=== PATIENT | female | born 1970 | race Caucasian/White ===

== ENCOUNTER 2019-05-30 06:16 | Emergency (ER) | payer OTHER ==
[2019-05-30 06:40] VITALS: RESP 18; TEMP 98
--- NOTE | 2019-05-30 06:52 | ED ---
Psych HPI - General Chief Complaint: Psychiatric Symptoms Stated Complaint: mental health Time Seen by Provider: 05/30/19 06:24 Source: patient, EMS, RN notes reviewed, old records reviewed Mode of arrival: EMS - History of Present Illness Initial Comments: Patient is a 49-year-old female who presents emergency department today with suicidal ideation, depression. Patient reports that she has had increased stressors in her life, with problems with her social relationships with friends and losing friends. She states that she is a daily drinker and drinks approximately a box of wine every other day. Patient reportedly is becoming increasing stress at home as her mother, who she lives was once moving to [place]. She also lives with HER-2 children and nephew. Patient reports that she does not have a car and does not have a job. She states that she is "done with everything". - Related Data Home Medications Medication Instructions Recorded Confirmed Aspirin EC [Ecotrin Low Dose] 81 mg PO DAILY 05/30/19 05/30/19 Biotin 5 mg PO DAILY 05/30/19 05/30/19 Cholecalciferol [Vitamin D3 (25 1,000 unit PO DAILY 05/30/19 05/30/19 Mcg = 1000 Iu)] DULoxetine HCL [Cymbalta] 60 mg PO BID 05/30/19 05/30/19 Lubiprostone [Amitiza] 8 mcg PO BID 05/30/19 05/30/19 Multivitamins, Thera [Multivitamin 1 tab PO DAILY 05/30/19 05/30/19 (formulary)] Omeprazole 40 mg PO DAILY 05/30/19 05/30/19 Ranitidine HCl [Zantac] 150 mg PO BID 05/30/19 05/30/19 Sominex 25mg 25 mg PO Q6H PRN 05/30/19 05/30/19 Allergies Allergy/AdvReac Type Severity Reaction Status Date / Time hydroxyzine HCl Allergy Intermediate Rash/Hives Verified 05/30/19 09:06 [From Vistaril] hydroxyzine pamoate Allergy Intermediate Rash/Hives Verified 05/30/19 09:06 [From Vistaril] metronidazole [From Flagyl] Allergy Unknown Verified 05/30/19 09:06 Penicillins Allergy Unknown Verified 05/30/19 09:06 Sulfa (Sulfonamide Allergy Unknown Verified 05/30/19 09:06 Antibiotics) trazodone Allergy Unknown Verified 05/30/19 09:06 Review of Systems ROS Statement: Those systems with pertinent positive or pertinent negative responses have been documented in the HPI. ROS Other: All systems not noted in ROS Statement are negative. Past Medical History Past Medical History: No Reported History Additional Past Medical History / Comment(s): Increased heart rate, hypotension, errythema on upper lip and around mouth. Patient was told its a skin reaction to stress. History of Any Multi-Drug Resistant Organisms: None Reported Past Surgical History: Cholecystectomy Additional Past Surgical History / Comment(s): Partial hysterectomy, bladder suspension, umbilical hernia repair, brast implants, herat catheterization, colonoscopy, endoscopy. Additional Past Anesthesia/Blood Transfusion Reaction / Comment(s): Patient reports having a surgery where she had nausea and vomiting from anesthesia. No previous blood transfusions. Past Psychological History: Anxiety, Depression, PTSD Additional Psychological History / Comment(s): Borderline personality disorder. History of 20 inpatient psychiatric admissions. Patient is transitioning from [facility] in in [facility] to [facility]. Smoking Status: Never smoker Past Alcohol Use History: None Reported Past Drug Use History: Cocaine, Prescription Drug Abuse Additional Drug Use History / Comment(s): Vicodin. 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 General Exam - General Exam Comments Initial Comments: Patient is a 49-year-old female, intoxicated. Limitations: no limitations General appearance: alert, appears intoxicated, anxious Head exam: Present: atraumatic, normocephalic, normal inspection Eye exam: Present: normal appearance, PERRL, EOMI. Absent: scleral icterus, conjunctival injection, periorbital swelling ENT exam: Present: normal exam, mucous membranes moist Neck exam: Present: normal inspection. Absent: tenderness, meningismus, lymphadenopathy Respiratory exam: Present: normal lung sounds bilaterally. Absent: respiratory distress, wheezes, rales, rhonchi, stridor Cardiovascular Exam: Present: regular rate, normal rhythm, normal heart sounds. Absent: systolic murmur, diastolic murmur, rubs, gallop, clicks GI/Abdominal exam: Present: soft, normal bowel sounds. Absent: distended, tenderness, guarding, rebound, rigid Extremities exam: Present: normal inspection, full ROM, normal capillary refill. Absent: tenderness, pedal edema, joint swelling, calf tenderness Back exam: Present: normal inspection Neurological exam: Present: alert, oriented X3, CN II-XII intact Psychiatric exam: Present: normal mood, agitated, anxious. Absent: normal affect Skin exam: Present: warm, dry, intact, normal color. Absent: rash Course Vital Signs 05/30/19 05/30/19 05/30/19 06:25 06:58 07:54 Temperature 98.0 F Pulse Rate 142 H 120 H 117 H Respiratory 18 18 Rate Blood Pressure 127/92 117/80 O2 Sat by Pulse 95 98 Oximetry 05/30/19 05/30/19 05/30/19 09:26 12:10 16:32 Temperature Pulse Rate 112 H 111 H 112 H Respiratory 18 18 18 Rate Blood Pressure 128/86 134/97 O2 Sat by Pulse 96 98 Oximetry Medical Decision Making - Medical Decision Making 49 year old female presents with ETOH intoxication and suicidal ideations. PAtient reportedly is under stress as mother wants to move, and she does not want to move. She drinks daily. Denies sucide plan. Patient was given fluids and labs obtained. Patient labs are unremarkable. PAtient sober and evaluated by EPS and [facility]U. PAtient agrees to safety plan and can be discharged home. DC with family. - Lab Data Result diagrams: 05/30/19 07:25 05/30/19 07:25 Lab Results 05/30/19 05/30/19 05/30/19 Range/Units 06:40 07:25 07:25 WBC (3.8-10.6) k/uL RBC (3.80-5.40) m/uL Hgb (11.4-16.0) gm/dL Hct (34.0-46.0) % MCV (80.0-100.0) fL MCH (25.0-35.0) pg MCHC (31.0-37.0) g/dL RDW (11.5-15.5) % Plt Count (150-450) k/uL Neutrophils % % Lymphocytes % % Monocytes % % Eosinophils % % Basophils % % Neutrophils # (1.3-7.7) k/uL Lymphocytes # (1.0-4.8) k/uL Monocytes # (0-1.0) k/uL Eosinophils # (0-0.7) k/uL Basophils # (0-0.2) k/uL Macrocytosis PT 9.9 (9.0-12.0) sec INR 0.9 (<1.2) Sodium 144 (137-145) mmol/L Potassium 4.2 (3.5-5.1) mmol/L Chloride 106 (98-107) mmol/L Carbon Dioxide 26 (22-30) mmol/L Anion Gap 12 mmol/L BUN 15 (7-17) mg/dL Creatinine 0.64 (0.52-1.04) mg/dL Est GFR (CKD-EPI)AfAm >90 (>60 ml/min/1.73 sqM) Est GFR (CKD-EPI)NonAf >90 (>60 ml/min/1.73 sqM) Glucose 93 (74-99) mg/dL Calcium 10.1 (8.4-10.2) mg/dL Magnesium 2.0 (1.6-2.3) mg/dL Total Bilirubin 0.3 (0.2-1.3) mg/dL AST 47 H (14-36) U/L ALT 34 (9-52) U/L Alkaline Phosphatase 149 H (38-126) U/L Total Protein 7.9 (6.3-8.2) g/dL Albumin 4.3 (3.5-5.0) g/dL Amylase 52 (30-110) U/L Lipase 290 (23-300) U/L Urine Opiates Screen Not Detected (NotDetected) Ur Oxycodone Screen Not Detected (NotDetected) Urine Methadone Screen Not Detected (NotDetected) Ur Propoxyphene Screen Not Detected (NotDetected) Ur Barbiturates Screen Not Detected (NotDetected) U Tricyclic Antidepress Not Detected (NotDetected) Ur Phencyclidine Scrn Not Detected (NotDetected) Ur Amphetamines Screen Not Detected (NotDetected) U Methamphetamines Scrn Not Detected (NotDetected) U Benzodiazepines Scrn Not Detected (NotDetected) Urine Cocaine Screen Not Detected (NotDetected) U Marijuana (THC) Screen Not Detected (NotDetected) Serum Alcohol 220 H* mg/dL 05/30/19 Range/Units 07:25 WBC 13.8 H (3.8-10.6) k/uL RBC 4.16 (3.80-5.40) m/uL Hgb 14.0 (11.4-16.0) gm/dL Hct 42.0 (34.0-46.0) % MCV 100.9 H (80.0-100.0) fL MCH 33.7 (25.0-35.0) pg MCHC 33.5 (31.0-37.0) g/dL RDW 15.2 (11.5-15.5) % Plt Count 358 (150-450) k/uL Neutrophils % 74 % Lymphocytes % 17 % Monocytes % 5 % Eosinophils % 2 % Basophils % 1 % Neutrophils # 10.1 H (1.3-7.7) k/uL Lymphocytes # 2.4 (1.0-4.8) k/uL Monocytes # 0.7 (0-1.0) k/uL Eosinophils # 0.2 (0-0.7) k/uL Basophils # 0.1 (0-0.2) k/uL Macrocytosis Slight PT (9.0-12.0) sec INR (<1.2) Sodium (137-145) mmol/L Potassium (3.5-5.1) mmol/L Chloride (98-107) mmol/L Carbon Dioxide (22-30) mmol/L Anion Gap mmol/L BUN (7-17) mg/dL Creatinine (0.52-1.04) mg/dL Est GFR (CKD-EPI)AfAm (>60 ml/min/1.73 sqM) Est GFR (CKD-EPI)NonAf (>60 ml/min/1.73 sqM) Glucose (74-99) mg/dL Calcium (8.4-10.2) mg/dL Magnesium (1.6-2.3) mg/dL Total Bilirubin (0.2-1.3) mg/dL AST (14-36) U/L ALT (9-52) U/L Alkaline Phosphatase (38-126) U/L Total Protein (6.3-8.2) g/dL Albumin (3.5-5.0) g/dL Amylase (30-110) U/L Lipase (23-300) U/L Urine Opiates Screen (NotDetected) Ur Oxycodone Screen (NotDetected) Urine Methadone Screen (NotDetected) Ur Propoxyphene Screen (NotDetected) Ur Barbiturates Screen (NotDetected) U Tricyclic Antidepress (NotDetected) Ur Phencyclidine Scrn (NotDetected) Ur Amphetamines Screen (NotDetected) U Methamphetamines Scrn (NotDetected) U Benzodiazepines Scrn (NotDetected) Urine Cocaine Screen (NotDetected) U Marijuana (THC) Screen (NotDetected) Serum Alcohol mg/dL Disposition Clinical Impression: Situational depression, ETOH abuse Disposition: HOME SELF-CARE Condition: Good Instructions (If sedation given, give patient instructions): Abuse of Alcohol (ED) Additional Instructions: Patient advised to stop drinking. Follow up with [facility]. Return to the emergency department if any alarming signs or symptoms occur. Is patient prescribed a controlled substance at d/c from ED?: No Referrals: Madina Nava MD [Primary Care Provider] - 1-2 days Time of Disposition: 16:25
[2019-05-30] MEDS ORDERED: SODIUM CHLORIDE 0.9% 1,000 ML IV STA (07:01)
[2019-05-30 07:03] LABS: Amphetamine Screen,Urine Not Detected (NotDetected); Barbiturate Screen,Urine Not Detected (NotDetected); Benzodiazepines Screen,Urine Not Detected (NotDetected); Cocaine Screen,Urine Not Detected (NotDetected); Methadone Screen, Urine Not Detected (NotDetected); Opiate Screen,Urine Not Detected (NotDetected); Oxycodone Screen, Urine Not Detected (NotDetected); Phencyclidine Screen,Urine Not Detected (NotDetected); Tricyclic Antidepressant,Urine Not Detected (NotDetected); Urn Cannabinoid Scrn Not Detected (NotDetected)
[2019-05-30] MEDS ORDERED: SODIUM CHLORIDE 0.9% 1,000 ML with POTASSIUM CHLORIDE 20 MEQ, MVI, ADULT NO.4 WITH VIT ... IV SCH ×5 (07:15)
[2019-05-30 07:49] LABS: INR 0.9 (<1.2); Prothrombin Time 9.9 sec (9.0-12.0)
[2019-05-30 08:01] LABS: ALT 34 U/L (9-52); AST 47 U/L (14-36); African American GFR (CKD) >90 (>60 ml/min/1.73 sqM); Albumin 4.3 g/dL (3.5-5.0); Alkaline Phosphatase 149 U/L (38-126); Amylase 52 U/L (30-110); Anion Gap 12 mmol/L; Blood Urea Nitrogen 15 mg/dL (7-17); Calcium 10.1 mg/dL (8.4-10.2); Carbon Dioxide 26 mmol/L (22-30); Chloride 106 mmol/L (98-107); Glucose 93 mg/dL (74-99); Potassium 4.2 mmol/L (3.5-5.1); Sodium 144 mmol/L (137-145); Total Bilirubin 0.3 mg/dL (0.2-1.3); Total Protein 7.9 g/dL (6.3-8.2)
[2019-05-30 08:17] LABS: Alcohol 220 mg/dL
[2019-05-30 08:35] LABS: Basophils # (A) 0.1 k/uL (0-0.2); Basophils % (A) 1 %; Eosinophils # (A) 0.2 k/uL (0-0.7); Eosinophils % (A) 2 %; Lymphocytes # (A) 2.4 k/uL (1.0-4.8); Lymphocytes % (A) 17 %; MCH 33.7 pg (25.0-35.0); MCHC 33.5 g/dL (31.0-37.0); MCV 100.9 fL (80.0-100.0); Macrocytosis Slight; Mean Platelet Volume 7.1; Monocytes # (A) 0.7 k/uL (0-1.0); Monocytes % (A) 5 %; Neutrophils # (A) 10.1 k/uL (1.3-7.7); Neutrophils % (A) 74 %; Platelet Count 358 k/uL (150-450); RBC 4.16 m/uL (3.80-5.40); RDW 15.2 % (11.5-15.5); WBC 13.8 k/uL (3.8-10.6)
[2019-05-30] MEDS ORDERED: ACETAMINOPHEN TAB 500 MG TAB PO STA (12:13)
[2019-05-30] MEDS ORDERED: IBUPROFEN 600 MG TAB PO STA (12:13)
[2019-05-30] MEDS ORDERED: LORazepam 1 MG TAB PO STA (12:35)
[2019-05-30 16:33] VITALS: BP 134/97; PULSE 112
== END 2019-05-30 16:46 | disposition home or self-care (01) ==
LOC: EC 06:16
DX: F43.21 Adjustment disorder with depressed mood (principal); F10.10 Alcohol abuse, uncomplicated; F41.9 Anxiety disorder, unspecified; F43.10 Post-traumatic stress disorder, unspecified; Z95.818 Presence of other cardiac implants and grafts; Z79.82 Long term (current) use of aspirin; Z79.899 Other long term (current) drug therapy; Z88.8 Allergy status to other drugs, medicaments and biological substances; Z88.1 Allergy status to other antibiotic agents; Z88.0 Allergy status to penicillin; Z88.2 Allergy status to sulfonamides
CPT/HCPCS: 82075; 36415; 80053; 82150; 83690; 83735; 85025; 85610; 80306; 99285; 96365; 96366 ×6; 96361; G0480; J3411; J3480; 80320

== ENCOUNTER 2019-06-03 11:21 | Emergency (ER) | payer OTHER ==
--- NOTE | 2019-06-03 11:38 | ED ---
General Adult HPI - General Stated complaint: Overdose Time Seen by Provider: 06/03/19 11:25 Source: patient, RN notes reviewed Limitations: no limitations - History of Present Illness Initial comments: Patient is a 49-year-old female presenting to the emergency Department with concerns for overdose. Patient states she was drinking alcohol and did take sleeping pills. Patient is unclear how many. Patient denies taking any Cymbalta however report on arrival did have concern for that. Patient states she wants to sleep and never wake up. Patient denies homicidal thoughts. No physical complaints. No hallucinations. No street drug use. Patient admits to feeling depressed. - Related Data Home Medications Medication Instructions Recorded Confirmed Aspirin EC [Ecotrin Low Dose] 81 mg PO DAILY 05/30/19 06/03/19 Biotin 5 mg PO DAILY 05/30/19 06/03/19 Cholecalciferol [Vitamin D3 (25 1,000 unit PO DAILY 05/30/19 06/03/19 Mcg = 1000 Iu)] DULoxetine HCL [Cymbalta] 60 mg PO BID 05/30/19 06/03/19 Lubiprostone [Amitiza] 8 mcg PO BID 05/30/19 06/03/19 Multivitamins, Thera [Multivitamin 1 tab PO DAILY 05/30/19 06/03/19 (formulary)] Omeprazole 40 mg PO DAILY 05/30/19 06/03/19 Ranitidine HCl [Zantac] 150 mg PO BID 05/30/19 06/03/19 Sominex 25mg 25 mg PO Q6H PRN 05/30/19 06/03/19 Allergies Allergy/AdvReac Type Severity Reaction Status Date / Time hydroxyzine HCl Allergy Intermediate Rash/Hives Verified 06/03/19 11:26 [From Vistaril] hydroxyzine pamoate Allergy Intermediate Rash/Hives Verified 06/03/19 11:26 [From Vistaril] metronidazole [From Flagyl] Allergy Unknown Verified 06/03/19 11:26 Penicillins Allergy Unknown Verified 06/03/19 11:26 Sulfa (Sulfonamide Allergy Unknown Verified 06/03/19 11:26 Antibiotics) trazodone Allergy Unknown Verified 06/03/19 11:26 Review of Systems ROS Statement: Those systems with pertinent positive or pertinent negative responses have been documented in the HPI. ROS Other: All systems not noted in ROS Statement are negative. Constitutional: Denies: fever Eyes: Denies: eye pain ENT: Denies: ear pain Respiratory: Denies: cough Cardiovascular: Denies: chest pain Endocrine: Denies: fatigue Gastrointestinal: Denies: vomiting Genitourinary: Denies: dysuria Musculoskeletal: Denies: back pain Skin: Denies: rash Psychiatric: Reports: depression Past Medical History Past Medical History: No Reported History Additional Past Medical History / Comment(s): Increased heart rate, hypotension, errythema on upper lip and around mouth. Patient was told its a skin reaction to stress. History of Any Multi-Drug Resistant Organisms: None Reported Past Surgical History: Cholecystectomy Additional Past Surgical History / Comment(s): Partial hysterectomy, bladder suspension, umbilical hernia repair, brast implants, herat catheterization, colonoscopy, endoscopy. Additional Past Anesthesia/Blood Transfusion Reaction / Comment(s): Patient reports having a surgery where she had nausea and vomiting from anesthesia. No previous blood transfusions. Past Psychological History: Anxiety, Depression, PTSD Additional Psychological History / Comment(s): Borderline personality disorder. History of 20 inpatient psychiatric admissions. Patient is transitioning from [facility] in in [facility] to [facility]. Smoking Status: Never smoker Past Alcohol Use History: None Reported Past Drug Use History: Cocaine, Prescription Drug Abuse Additional Drug Use History / Comment(s): Vicodin. 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 General Exam Limitations: no limitations General appearance: other (Drowsy) Head exam: Present: atraumatic Eye exam: Present: normal appearance ENT exam: Present: normal oropharynx Neck exam: Present: normal inspection Respiratory exam: Present: normal lung sounds bilaterally Cardiovascular Exam: Present: regular rate, normal rhythm GI/Abdominal exam: Present: soft. Absent: tenderness Extremities exam: Present: normal inspection Neurological exam: Present: other (Drowsy). Absent: motor sensory deficit Psychiatric exam: Present: flat affect Skin exam: Present: normal color Course Vital Signs 06/03/19 11:23 Temperature 98 F Pulse Rate 100 Respiratory 16 Rate Blood Pressure 132/92 O2 Sat by Pulse 100 Oximetry EKG Findings - EKG Comments: EKG Findings:: Normal sinus rhythm 97. VT 122. QRS 68. QT 342. QTC 434. Normal axis. Normal QRS. No acute ST change. Medical Decision Making - Medical Decision Making Patient seen by mental health services with plans for psychiatric admission. - Lab Data Result diagrams: 06/03/19 11:45 06/03/19 11:45 Lab Results 06/03/19 06/03/19 06/03/19 Range/Units 11:45 11:45 14:07 WBC 9.0 (3.8-10.6) k/uL RBC 4.48 (3.80-5.40) m/uL Hgb 15.1 (11.4-16.0) gm/dL Hct 45.0 (34.0-46.0) % MCV 100.3 H (80.0-100.0) fL MCH 33.7 (25.0-35.0) pg MCHC 33.6 (31.0-37.0) g/dL RDW 15.2 (11.5-15.5) % Plt Count 319 (150-450) k/uL Neutrophils % 60 % Lymphocytes % 27 % Monocytes % 6 % Eosinophils % 4 % Basophils % 1 % Neutrophils # 5.4 (1.3-7.7) k/uL Lymphocytes # 2.5 (1.0-4.8) k/uL Monocytes # 0.5 (0-1.0) k/uL Eosinophils # 0.4 (0-0.7) k/uL Basophils # 0.1 (0-0.2) k/uL Macrocytosis Slight Sodium 143 (137-145) mmol/L Potassium 4.2 (3.5-5.1) mmol/L Chloride 110 H (98-107) mmol/L Carbon Dioxide 24 (22-30) mmol/L Anion Gap 9 mmol/L BUN 4 L (7-17) mg/dL Creatinine 0.49 L (0.52-1.04) mg/dL Est GFR (CKD-EPI)AfAm >90 (>60 ml/min/1.73 sqM) Est GFR (CKD-EPI)NonAf >90 (>60 ml/min/1.73 sqM) Glucose 99 (74-99) mg/dL Calcium 8.0 L (8.4-10.2) mg/dL Total Bilirubin 0.4 (0.2-1.3) mg/dL AST 49 H (14-36) U/L ALT 32 (9-52) U/L Alkaline Phosphatase 91 (38-126) U/L Total Protein 6.9 (6.3-8.2) g/dL Albumin 3.7 (3.5-5.0) g/dL Urine Color Yellow Urine Appearance Clear (Clear) Urine pH 5.5 (5.0-8.0) Ur Specific [place] 1.010 (1.001-1.035) Urine Protein Negative (Negative) Urine Glucose (UA) Negative (Negative) Urine Ketones Negative (Negative) Urine Blood Negative (Negative) Urine Nitrite Negative (Negative) Urine Bilirubin 1+ H (Negative) Urine Urobilinogen <2.0 (<2.0) mg/dL Ur Leukocyte Esterase Moderate H (Negative) Urine RBC 1 (0-5) /hpf Urine WBC 6 H (0-5) /hpf Ur Squamous Epith Cells 4 (0-4) /hpf Urine Mucus Occasional H (None) /hpf Urine HCG, Qual (Not Detectd) Salicylates <1.0 mg/dL Urine Opiates Screen Not Detected (NotDetected) Ur Oxycodone Screen Not Detected (NotDetected) Urine Methadone Screen Not Detected (NotDetected) Ur Propoxyphene Screen Not Detected (NotDetected) Acetaminophen <10.0 ug/mL Ur Barbiturates Screen Not Detected (NotDetected) U Tricyclic Antidepress Not Detected (NotDetected) Ur Phencyclidine Scrn Not Detected (NotDetected) Ur Amphetamines Screen Not Detected (NotDetected) U Methamphetamines Scrn Not Detected (NotDetected) U Benzodiazepines Scrn Not Detected (NotDetected) Urine Cocaine Screen Not Detected (NotDetected) U Marijuana (THC) Screen Not Detected (NotDetected) Serum Alcohol 129 mg/dL 06/03/19 Range/Units 14:07 WBC (3.8-10.6) k/uL RBC (3.80-5.40) m/uL Hgb (11.4-16.0) gm/dL Hct (34.0-46.0) % MCV (80.0-100.0) fL MCH (25.0-35.0) pg MCHC (31.0-37.0) g/dL RDW (11.5-15.5) % Plt Count (150-450) k/uL Neutrophils % % Lymphocytes % % Monocytes % % Eosinophils % % Basophils % % Neutrophils # (1.3-7.7) k/uL Lymphocytes # (1.0-4.8) k/uL Monocytes # (0-1.0) k/uL Eosinophils # (0-0.7) k/uL Basophils # (0-0.2) k/uL Macrocytosis Sodium (137-145) mmol/L Potassium (3.5-5.1) mmol/L Chloride (98-107) mmol/L Carbon Dioxide (22-30) mmol/L Anion Gap mmol/L BUN (7-17) mg/dL Creatinine (0.52-1.04) mg/dL Est GFR (CKD-EPI)AfAm (>60 ml/min/1.73 sqM) Est GFR (CKD-EPI)NonAf (>60 ml/min/1.73 sqM) Glucose (74-99) mg/dL Calcium (8.4-10.2) mg/dL Total Bilirubin (0.2-1.3) mg/dL AST (14-36) U/L ALT (9-52) U/L Alkaline Phosphatase (38-126) U/L Total Protein (6.3-8.2) g/dL Albumin (3.5-5.0) g/dL Urine Color Urine Appearance (Clear) Urine pH (5.0-8.0) Ur Specific [place] (1.001-1.035) Urine Protein (Negative) Urine Glucose (UA) (Negative) Urine Ketones (Negative) Urine Blood (Negative) Urine Nitrite (Negative) Urine Bilirubin (Negative) Urine Urobilinogen (<2.0) mg/dL Ur Leukocyte Esterase (Negative) Urine RBC (0-5) /hpf Urine WBC (0-5) /hpf Ur Squamous Epith Cells (0-4) /hpf Urine Mucus (None) /hpf Urine HCG, Qual Not Detected (Not Detectd) Salicylates mg/dL Urine Opiates Screen (NotDetected) Ur Oxycodone Screen (NotDetected) Urine Methadone Screen (NotDetected) Ur Propoxyphene Screen (NotDetected) Acetaminophen ug/mL Ur Barbiturates Screen (NotDetected) U Tricyclic Antidepress (NotDetected) Ur Phencyclidine Scrn (NotDetected) Ur Amphetamines Screen (NotDetected) U Methamphetamines Scrn (NotDetected) U Benzodiazepines Scrn (NotDetected) Urine Cocaine Screen (NotDetected) U Marijuana (THC) Screen (NotDetected) Serum Alcohol mg/dL Disposition Clinical Impression: Depression, Suicidal ideation, ETOH abuse, Drug overdose Disposition: TRANSFER TO PSYCH HOSP/UNIT Is patient prescribed a controlled substance at d/c from ED?: No Referrals: None,Stated [Primary Care Provider] - 1-2 days Time of Disposition: 16:15
[2019-06-03 11:53] LABS: Basophils # (A) 0.1 k/uL (0-0.2); Basophils % (A) 1 %; Eosinophils # (A) 0.4 k/uL (0-0.7); Eosinophils % (A) 4 %; HGB 15.1 gm/dL (11.4-16.0); Lymphocytes # (A) 2.5 k/uL (1.0-4.8); Lymphocytes % (A) 27 %; MCH 33.7 pg (25.0-35.0); MCHC 33.6 g/dL (31.0-37.0); MCV 100.3 fL (80.0-100.0); Macrocytosis Slight; Mean Platelet Volume 6.7; Monocytes # (A) 0.5 k/uL (0-1.0); Monocytes % (A) 6 %; Neutrophils # (A) 5.4 k/uL (1.3-7.7); Neutrophils % (A) 60 %; Platelet Count 319 k/uL (150-450); RBC 4.48 m/uL (3.80-5.40); RDW 15.2 % (11.5-15.5)
[2019-06-03 12:04] LABS: Acetaminophen <10.0 ug/mL; African American GFR (CKD) >90 (>60 ml/min/1.73 sqM); Albumin 3.7 g/dL (3.5-5.0); Anion Gap 9 mmol/L; Blood Urea Nitrogen 4 mg/dL (7-17); Carbon Dioxide 24 mmol/L (22-30); Chloride 110 mmol/L (98-107); Glucose 99 mg/dL (74-99); Salicylate <1.0 mg/dL; Sodium 143 mmol/L (137-145); Total Bilirubin 0.4 mg/dL (0.2-1.3); Total Protein 6.9 g/dL (6.3-8.2)
[2019-06-03 12:15] LABS: Alcohol 129 mg/dL
[2019-06-03 12:16] LABS: ALT 32 U/L (9-52); AST 49 U/L (14-36); Alkaline Phosphatase 91 U/L (38-126); Potassium 4.2 mmol/L (3.5-5.1)
[2019-06-03 14:16] LABS: Appearance,Urine Clear (Clear); Bilirubin,Urine 1+ (Negative); Blood,Urine Negative (Negative); Color,Urine Yellow; Glucose,Urine (UA) Negative (Negative); Ketones,Urine Negative (Negative); Leukocyte Esterase,Urine Moderate (Negative); Mucus,Urine Occasional /hpf; Nitrite,Urine Negative (Negative); PH, Urine 5.5 (5.0-8.0); Protein,Urine Negative (Negative); RBC,Urine 1 /hpf (0-5); Squamous Epithelial Cell,Urine 4 /hpf (0-4); Urobilinogen,Urine <2.0 mg/dL (<2.0); WBC,Urine 6 /hpf (0-5)
[2019-06-03 14:22] LABS: Amphetamine Screen,Urine Not Detected (NotDetected); Barbiturate Screen,Urine Not Detected (NotDetected); Benzodiazepines Screen,Urine Not Detected (NotDetected); Cocaine Screen,Urine Not Detected (NotDetected); Methadone Screen, Urine Not Detected (NotDetected); Opiate Screen,Urine Not Detected (NotDetected); Oxycodone Screen, Urine Not Detected (NotDetected); Phencyclidine Screen,Urine Not Detected (NotDetected); Tricyclic Antidepressant,Urine Not Detected (NotDetected); Urn Cannabinoid Scrn Not Detected (NotDetected)
[2019-06-03] MEDS ORDERED: LORazepam 1 MG TAB PO STA ×2 (16:13→21:02)
[2019-06-04 06:22] VITALS: RESP 18
[2019-06-04] MEDS ORDERED: LORazepam 1 MG TAB PO STA (09:39)
[2019-06-04 14:31] VITALS: BP 120/82; PULSE 110; TEMP 97.6
== END 2019-06-04 14:59 ==
LOC: EC 11:21
DX: F32.9 Major depressive disorder, single episode, unspecified (principal); R45.851 Suicidal ideations; F10.10 Alcohol abuse, uncomplicated; T42.72XA Poisoning by unspecified antiepileptic and sedative-hypnotic drugs, intentional self-harm, initial encounter; F41.9 Anxiety disorder, unspecified; Z79.82 Long term (current) use of aspirin; Z79.899 Other long term (current) drug therapy; Z88.0 Allergy status to penicillin; Z88.2 Allergy status to sulfonamides; Z88.1 Allergy status to other antibiotic agents; Z88.8 Allergy status to other drugs, medicaments and biological substances
CPT/HCPCS: 36415; 93005; 80053; 85025; 81001; 81025; 80306; 83520; 99285; G0480 ×2; 80320; 80329

== ENCOUNTER 2019-08-31 01:44 | Inpatient (IN) | payer MEDICAID, OTHER ==
[2019-08-31] MEDS ORDERED: LORazepam 1 MG TAB PO STA ×2 (02:16→03:18)
--- NOTE | 2019-08-31 03:56 | ED ---
General Adult HPI - General Chief complaint: Anxiety Stated complaint: Mental Health Time Seen by Provider: 08/31/19 01:49 Source: patient, RN notes reviewed, old records reviewed Mode of arrival: ambulatory Limitations: no limitations - History of Present Illness Initial comments: 49-year-old female patient past medical history of depression procedure chief complaint of extreme anxiety. Patient 40 that she has been very anxious for weeks to financial difficulties. Reports that she is having difficulty sleeping and racing thoughts. Denies any suicidal or homicidal ideations. Patient does request to speak to emergency psychiatric services. She reports that she has been calling the crisis hotline at [facility] where she is not able to be seen until next week. Denies any other complaints at this time. Denies a chance of being . Systemic: Pt denies fatigue, fever/chills, rash. Pt denies weakness, night sweats, weight loss. Neuro: Pt denies headache, visual disturbances, syncope or pre-syncope. HEENT: Pt denies ocular discharge or irritation, otalgia, rhinorrhea, pharyngitis or notable lymphadenopathy. Cardiopulmonary: Pt denies chest pain, SOB, heart palpitations, dyspnea on exertion. Abdominal/GI: Pt denies abdominal pain, n/v/d. : Pt denies dysuria, burning w/ urination, frequency/urgency. Denies new onset urinary or bowel incontinence. MSK: Pt denies myalgia, loss of strength or function in extremities. Neuro: Pt denies new onset weakness, paresthesias. - Related Data Home Medications Medication Instructions Recorded Confirmed Aspirin EC [Ecotrin Low Dose] 81 mg PO DAILY 05/30/19 08/31/19 Biotin 5 mg PO DAILY 05/30/19 08/31/19 Cholecalciferol [Vitamin D3 (25 1,000 unit PO DAILY 05/30/19 08/31/19 Mcg = 1000 Iu)] DULoxetine HCL [Cymbalta] 60 mg PO BID 05/30/19 08/31/19 Lubiprostone [Amitiza] 8 mcg PO BID 05/30/19 08/31/19 Multivitamins, Thera [Multivitamin 1 tab PO DAILY 05/30/19 08/31/19 (formulary)] Omeprazole 40 mg PO DAILY 05/30/19 08/31/19 Ranitidine HCl [Zantac] 150 mg PO BID 05/30/19 08/31/19 Sominex 25mg 25 mg PO Q6H PRN 05/30/19 08/31/19 Allergies Allergy/AdvReac Type Severity Reaction Status Date / Time hydroxyzine HCl Allergy Intermediate Rash/Hives Verified 08/31/19 05:44 [From Vistaril] hydroxyzine pamoate Allergy Intermediate Rash/Hives Verified 08/31/19 05:44 [From Vistaril] metronidazole [From Flagyl] Allergy Unknown Verified 08/31/19 05:44 Penicillins Allergy Unknown Verified 08/31/19 05:44 Sulfa (Sulfonamide Allergy Unknown Verified 08/31/19 05:44 Antibiotics) Review of Systems ROS Statement: Those systems with pertinent positive or pertinent negative responses have been documented in the HPI. ROS Other: All systems not noted in ROS Statement are negative. Past Medical History Past Medical History: No Reported History Additional Past Medical History / Comment(s): Increased heart rate, hypotension, errythema on upper lip and around mouth. Patient was told its a skin reaction to stress. History of Any Multi-Drug Resistant Organisms: None Reported Past Surgical History: Cholecystectomy Additional Past Surgical History / Comment(s): Partial hysterectomy, bladder suspension, umbilical hernia repair, brast implants, herat catheterization, colonoscopy, endoscopy. Additional Past Anesthesia/Blood Transfusion Reaction / Comment(s): Patient reports having a surgery where she had nausea and vomiting from anesthesia. No previous blood transfusions. Past Psychological History: Anxiety, Depression, Panic Disorder, PTSD Smoking Status: Never smoker Past Alcohol Use History: None Reported Past Drug Use History: Cocaine, Prescription Drug Abuse General Exam - General Exam Comments Initial Comments: Constitutional: NAD, AOX3, Pt has pleasant affect. HEENT: NC/AT, trachea midline, neck supple, no lymphadenopathy. Posterior pharynx non erythematous, without exudates. External ears appear normal, without discharge. Mucous membranes moist. Eyes PERRLA, EOM intact. There is no scleral icterus. No pallor noted. Cardiopulmonary: RRR, no murmurs, rubs or gallops, no JVD noted. Lungs CTAB in anterior and posterior coley. No peripheral edema. Abdominal exam: Abdomen soft and non-distended. Abdomen non-tender to palpation in all 4 quadrants. Bowel sounds active in LLQ. No hepatosplenomegaly. No ecchymosis Neuro: CN II-XII grossly intact. No nuchal rigidity. No raccon eyes, no mcallister sign, no hemotympanum. No cervical spinal tenderness. MSK: No posterior calf tenderness bilaterally, homans sign negative bilaterally. Posterior tibialis and radial pulse +2 bilaterally. Sensation intact in upper and lower extremities. Full active ROM in upper and lower extremities, 5/5 stregnth. Limitations: no limitations Course Vital Signs 08/31/19 08/31/19 08/31/19 01:45 03:45 05:38 Temperature 98.7 F Pulse Rate 122 H 125 H 103 H Respiratory 20 18 20 Rate Blood Pressure 149/91 146/100 139/103 O2 Sat by Pulse 97 100 100 Oximetry Medical Decision Making - Medical Decision Making 49-year-old female patient presents ED for chief complaint of anxiety, racing thoughts. Denies any physical complaints. Patient also displayed mild tachycardia. Patient signed out to Dr. Andino pending psychiatric evaluation. Patient reportedly told EPS that she did have suicidal ideations. Patient voluntarily signed herself for inpatient psychiatric care. - Lab Data Result diagrams: 08/31/19 07:45 08/31/19 07:45 Lab Results 08/31/19 08/31/19 08/31/19 Range/Units 03:30 03:30 03:30 Urine Color Yellow Urine Appearance Clear (Clear) Urine pH 6.5 (5.0-8.0) Ur Specific [place] 1.025 (1.001-1.035) Urine Protein 1+ H (Negative) Urine Glucose (UA) Negative (Negative) Urine Ketones Negative (Negative) Urine Blood Negative (Negative) Urine Nitrite Negative (Negative) Urine Bilirubin Negative (Negative) Urine Urobilinogen 2.0 (<2.0) mg/dL Ur Leukocyte Esterase Small H (Negative) Urine RBC 1 (0-5) /hpf Urine WBC 4 (0-5) /hpf Ur Squamous Epith Cells 3 (0-4) /hpf Calcium Oxalate Crystal Moderate H (None) /hpf Hyaline Casts 5 H (0-2) /lpf Urine Mucus Many H (None) /hpf Urine HCG, Qual Not Detected (Not Detectd) Urine Opiates Screen Detected H (NotDetected) Ur Oxycodone Screen Not Detected (NotDetected) Urine Methadone Screen Not Detected (NotDetected) Ur Propoxyphene Screen Not Detected (NotDetected) Ur Barbiturates Screen Not Detected (NotDetected) U Tricyclic Antidepress Not Detected (NotDetected) Ur Phencyclidine Scrn Not Detected (NotDetected) Ur Amphetamines Screen Not Detected (NotDetected) U Methamphetamines Scrn Not Detected (NotDetected) U Benzodiazepines Scrn Detected H (NotDetected) Urine Cocaine Screen Not Detected (NotDetected) U Marijuana (THC) Screen Not Detected (NotDetected) Disposition Clinical Impression: Acute anxiety, Suicidal ideations Disposition: ADMITTED IP TO THIS [facility] Condition: Stable Is patient prescribed a controlled substance at d/c from ED?: No
[2019-08-31 04:07] LABS: Amphetamine Screen,Urine Not Detected (NotDetected); Barbiturate Screen,Urine Not Detected (NotDetected); Benzodiazepines Screen,Urine Detected (NotDetected); Cocaine Screen,Urine Not Detected (NotDetected); Methadone Screen, Urine Not Detected (NotDetected); Opiate Screen,Urine Detected (NotDetected); Oxycodone Screen, Urine Not Detected (NotDetected); Phencyclidine Screen,Urine Not Detected (NotDetected); Tricyclic Antidepressant,Urine Not Detected (NotDetected); Urn Cannabinoid Scrn Not Detected (NotDetected)
[2019-08-31] MEDS ORDERED: MAGNESIUM HYDROXIDE 2,400 MG/10 ML CUP PO PRN (05:38)
[2019-08-31] MEDS ORDERED: MAG HYDROX/AL HYDROX/SIMETH 30 ML CUP PO PRN (05:38)
[2019-08-31] MEDS ORDERED: ZIPRASIDONE 20 MG VIAL IM PRN (05:38)
[2019-08-31 06:43] LABS: Appearance,Urine Clear (Clear); Bilirubin,Urine Negative (Negative); Blood,Urine Negative (Negative); Calcium Oxalate Crystals,Urine Moderate /hpf; Color,Urine Yellow; Glucose,Urine (UA) Negative (Negative); Hyaline Casts,Urine 5 /lpf (0-2); Ketones,Urine Negative (Negative); Leukocyte Esterase,Urine Small (Negative); Mucus,Urine Many /hpf; Nitrite,Urine Negative (Negative); PH, Urine 6.5 (5.0-8.0); Protein,Urine 1+ (Negative); RBC,Urine 1 /hpf (0-5); Specific Gravity,Urine 1.025 (1.001-1.035); Squamous Epithelial Cell,Urine 3 /hpf (0-4); WBC,Urine 4 /hpf (0-5)
[2019-08-31 08:36] LABS: Basophils % (A) 0 %; Eosinophils # (A) 0.1 k/uL (0-0.7); Eosinophils % (A) 1 %; HGB 14.3 gm/dL (11.4-16.0); Lymphocytes # (A) 2.4 k/uL (1.0-4.8); Lymphocytes % (A) 22 %; MCH 31.7 pg (25.0-35.0); MCHC 33.2 g/dL (31.0-37.0); MCV 95.4 fL (80.0-100.0); Mean Platelet Volume 7.2; Monocytes # (A) 0.6 k/uL (0-1.0); Monocytes % (A) 6 %; Neutrophils # (A) 7.1 k/uL (1.3-7.7); Neutrophils % (A) 68 %; Platelet Count 265 k/uL (150-450); RBC 4.51 m/uL (3.80-5.40); WBC 10.5 k/uL (3.8-10.6)
[2019-08-31 08:42] LABS: ALT 21 U/L (4-34); AST 33 U/L (14-36); African American GFR (CKD) >90 (>60 ml/min/1.73 sqM); Albumin 4.1 g/dL (3.5-5.0); Alkaline Phosphatase 106 U/L (38-126); Anion Gap 9 mmol/L; Bilirubin, Delta 0.2 mg/dL (0.0-0.2); Bilirubin,Unconjugated 0.4 mg/dL (0.0-1.1); Blood Urea Nitrogen 7 mg/dL (7-17); Calcium 9.4 mg/dL (8.4-10.2); Carbon Dioxide 30 mmol/L (22-30); Chloride 101 mmol/L (98-107); Cholesterol 163 mg/dL (<200); Glucose 104 mg/dL (74-99); HDL Cholesterol 82 mg/dL (40-60); LDL Cholesterol,Calculated 60 mg/dL (0-99); Non-African American GFR(CKD) >90 (>60 ml/min/1.73 sqM); Potassium 3.3 mmol/L (3.5-5.1); Sodium 140 mmol/L (137-145); Total Bilirubin 0.6 mg/dL (0.2-1.3); Total Protein 7.3 g/dL (6.3-8.2); Triglycerides 103 mg/dL (<150)
[2019-08-31] MEDS ORDERED: POTASSIUM CHLORIDE ER 10 MEQ TAB.ER.PRT PO STA (11:12)
[2019-08-31] MEDS: busPIRone HCl 5 MG TAB PO SCH ×2 (11:24→21:06)
[2019-08-31] MEDS: SERTRALINE 50 MG TAB PO SCH (11:25)
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
--- NOTE | 2019-08-31 14:38 | P.MDCNMH ---
History of Present Illness H&P Date: 08/31/19 Chief Complaint: nasal congestion 49-year-old female with PMH of GERD, depression and anxiety presents the ED for worsening anxiety and suicidal ideation. Patient is admitted to mental health unit for further evaluation and treatment. [facility] physicians has been consulted for medical management of this patient. Patient was seen and examined. No acute events overnight. Patient reports nasal stuffiness that has been ongoing for the last 2 months. Patient states she suffered from sinus infection 2 months ago treated with antibiotics and since then has been feeling nasal stuffiness, rhinorrhea and frontal headache. Patient states that she has been evaluated by her PCP and has been advised ENT consult. She has never seen ENT. Patient denies any lower extremity edema, nausea or vomiting, fever or chills, cough, chest pain, shortness of breath, palpitations, changes in urination or bowel habits. She denies any dizziness, numbness/weakness/tingling of the extremities. She does report a decrease appetite due to stress. Review of Systems Pertinent positives and negatives as discussed in HPI, a complete review of systems was performed and all other systems are negative. Past Medical History Past Medical History: No Reported History Additional Past Medical History / Comment(s): Increased heart rate History of Any Multi-Drug Resistant Organisms: None Reported Past Surgical History: Cholecystectomy Additional Past Surgical History / Comment(s): Partial hysterectomy, bladder suspension, umbilical hernia repair, breast implants, heart catheterization, colonoscopy, endoscopy. Additional Past Anesthesia/Blood Transfusion Reaction / Comment(s): Patient reports having a surgery where she had nausea and vomiting from anesthesia. No previous blood transfusions. Past Psychological History: Anxiety, Depression, Panic Disorder, PTSD Additional Psychological History / Comment(s): Borderline personality disorder. History of 20 inpatient psychiatric admissions. Smoking Status: Never smoker Past Alcohol Use History: None Reported Past Drug Use History: Cocaine, Prescription Drug Abuse Additional Drug Use History / Comment(s): Vicodin. 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 Medications and Allergies Home Medications Medication Instructions Recorded Confirmed Type Aspirin EC [Ecotrin Low Dose] 81 mg PO DAILY 05/30/19 08/31/19 History Biotin 5 mg PO DAILY 05/30/19 08/31/19 History Cholecalciferol [Vitamin D3 (25 1,000 unit PO DAILY 05/30/19 08/31/19 History Mcg = 1000 Iu)] DULoxetine HCL [Cymbalta] 60 mg PO BID 05/30/19 08/31/19 History Lubiprostone [Amitiza] 8 mcg PO BID 05/30/19 08/31/19 History Multivitamins, Thera [Multivitamin 1 tab PO DAILY 05/30/19 08/31/19 History (formulary)] Omeprazole 40 mg PO DAILY 05/30/19 08/31/19 History Ranitidine HCl [Zantac] 150 mg PO BID 05/30/19 08/31/19 History Sominex 25mg 25 mg PO Q6H PRN 05/30/19 08/31/19 History Allergies Allergy/AdvReac Type Severity Reaction Status Date / Time hydroxyzine HCl Allergy Intermediate Rash/Hives Verified 08/31/19 05:44 [From Vistaril] hydroxyzine pamoate Allergy Intermediate Rash/Hives Verified 08/31/19 05:44 [From Vistaril] metronidazole [From Flagyl] Allergy Unknown Verified 08/31/19 05:44 Penicillins Allergy Unknown Verified 08/31/19 05:44 Sulfa (Sulfonamide Allergy Unknown Verified 08/31/19 05:44 Antibiotics) Physical Exam Vitals: Vital Signs Temp Pulse Pulse Resp BP BP Pulse Ox 08/31/19 06:03 98.2 F 132 H 14 146/93 98 08/31/19 05:38 103 H 20 139/103 100 08/31/19 03:45 125 H 18 146/100 100 08/31/19 01:45 98.7 F 122 H 20 149/91 97 Intake and Output 08/30/19 08/31/19 08/31/19 22:59 06:59 14:59 Other: Weight 63.588 kg General: [non toxic], [no distress], [appears at stated age] Derm: [warm], [dry] Head: [atraumatic], [normocephalic], [symmetric], [swollen nasal turbinates] Eyes: [EOMI], [no lid lag], [anicteric sclera] Mouth: [no lip lesion], [mucus membranes moist] Cardiovascular: [S1S2 reg], [tachycardia], [positive DP pulse bilateral], Lungs: [CTA bilateral], [no rhonchi, no rales] , [no accessory muscle use] Abdominal: [soft], [ nontender to palpation], [no guarding], [no appreciable organomegaly] Ext: [no gross muscle atrophy], [no edema], [no contractures] Neuro: [ CN II-XI grossly intact], [no focal neuro deficits] Psych: [Alert], [oriented], [appropriate affect] Cranial Nerve Examination - Cranial Nerves Cranial Nerve II- Optic: Intact Cranial Nerve III- Oculomotor: Intact Cranial Nerve IV- Trochlear: Intact Cranial Nerve V- Trigeminal: Intact Cranial Nerve - Abducens: Intact Cranial Nerve VII- Facial: Intact Cranial Nerve VIII- Auditory: Intact Cranial Nerve IX- Glossopharyngeal: Intact Cranial Nerve X- Vagus: Intact Cranial Nerve XI- Accessory: Intact Cranial Nerve XII- Hypoglossal: Intact Results CBC & Chem 7: 08/31/19 07:45 08/31/19 07:45 Labs: Abnormal Lab Results - Last 24 Hours (Table) 08/31/19 08/31/19 08/31/19 Range/Units 03:30 03:30 07:45 Potassium 3.3 L (3.5-5.1) mmol/L Glucose 104 H (74-99) mg/dL HDL Cholesterol 82 H (40-60) mg/dL Urine Protein 1+ H (Negative) Ur Leukocyte Esterase Small H (Negative) Calcium Oxalate Crystal Moderate H (None) /hpf Hyaline Casts 5 H (0-2) /lpf Urine Mucus Many H (None) /hpf Urine Opiates Screen Detected H (NotDetected) U Benzodiazepines Scrn Detected H (NotDetected) Assessment and Plan Assessment: GERD ALLERGIC rhinitis Hypokalemia Abnormal urinalysis Plans: Protonix. Plans: Start Flonase. Start Claritin. Plans: Replace via protocol. Patient asymptomatic. Plans: Nothing further to do. Thank you for this consultation. Please call with any additional questions or concerns.
[2019-08-31] MEDS ORDERED: LOPERAMIDE 2 MG CAP PO PRN (14:49)
[2019-08-31 19:31] LABS: Hemoglobin A1C 5.5 % (4.0-6.0)
[2019-08-31] MEDS: MELATONIN 5 MG TABLET PO SCH (21:06)
[2019-08-31] MEDS: DOXEPIN 10 MG CAP PO SCH (21:07)
[2019-08-31 23:00] LABS: Appearance,Urine Cloudy (Clear); Bacteria,Urine Rare /hpf; Bilirubin,Urine Negative (Negative); Blood,Urine Negative (Negative); Color,Urine Yellow; Glucose,Urine (UA) Negative (Negative); Hyaline Casts,Urine 3 /lpf (0-2); Ketones,Urine 1+ (Negative); Leukocyte Esterase,Urine Small (Negative); Mucus,Urine Many /hpf; Nitrite,Urine Negative (Negative); Protein,Urine Trace (Negative); RBC,Urine 1 /hpf (0-5); Specific Gravity,Urine 1.015 (1.001-1.035); Squamous Epithelial Cell,Urine 1 /hpf (0-4); Urobilinogen,Urine <2.0 mg/dL (<2.0); WBC,Urine 4 /hpf (0-5)
[2019-09-01] MEDS: LORATADINE 10 MG TAB PO SCH (08:41)
[2019-09-01] MEDS: PANTOPRAZOLE 40 MG TABLET PO SCH (08:41)
[2019-09-01] MEDS: SERTRALINE 50 MG TAB PO SCH (08:41)
[2019-09-01] MEDS: FLUTICASONE 50MCG/SPRAY NASAL 16GM EA NOSTRIL SCH (08:41)
[2019-09-01] MEDS: busPIRone HCl 5 MG TAB PO SCH (08:41)
[2019-09-01 09:51] LABS: African American GFR (CKD) >90 (>60 ml/min/1.73 sqM); Anion Gap 11 mmol/L; Blood Urea Nitrogen 8 mg/dL (7-17); Calcium 9.6 mg/dL (8.4-10.2); Carbon Dioxide 25 mmol/L (22-30); Chloride 104 mmol/L (98-107); Glucose 136 mg/dL (74-99); Non-African American GFR(CKD) >90 (>60 ml/min/1.73 sqM); Potassium 3.7 mmol/L (3.5-5.1); Sodium 140 mmol/L (137-145)
--- NOTE | 2019-09-01 12:00 | P.PN ---
Progress Note - Text Progress Note Date: 09/01/19 Interval History: Patient was seen wandering the hallways and was agreeable to speak to commercial real estate underwriter in the office. Patient appeared to be somewhat tearful today explaining that she doesn't think a lot about her situation at home and how she wants to leave her mother's place. She claims that she's been doing research on different places that she may be able to afford. Patient claims that her anxiety has been improving gradually since being on the unit and also claims that she slept better last night however does not know how many hours she slept. Patient claims that she is okay with increasing her dose of Zoloft and BuSpar at this time. She claims had fair energy and improving appetite. At this time patient denies any suicidal or homical ideations, intent or plan. Patient denies any auditory, visual hallucinations and denies any paranoia or delusions. Patient denies any side effects from the medications and has been compliant with meds. Mental Status Exam: General Appearance: Patient appears to be stated age is alert, directable and attempts to cooperate. Marginal hygiene and grooming. Patient is in street clothing and a fair eye contact. Behavior: Patient is seated without any agitated behavior. Appears to be anxious and tearful. Speech: Patient's speech is fluent and nonpressured. Mood/Affect: Patient reports their mood is depressed and anxious, mildly improving, affect is congruent and constricted. Suicidality/Homicidality: Patient denies having any suicidal or homicidal ideation intent or plan. Perceptions: Patient denies any auditory or visual hallucinations. Though content/process: There is no evidence of any delusional thought content and thought process is linear and goal-directed. Memory and concentration: AOX3, grossly intact for the purposes of this session. Judgment and insight: poor, mildly improving. Assessment Major depressive disorder, without psychotic features History of PTSD Cluster B personality traits History of alcohol abuse. Plan: -Patient continues to meet criteria for inpatient psychiatric admission for symptom stabilization and safety. Patient has signed adult voluntary form and medication consent and was placed in patient's chart. -Medications: Continue with doxepin 10 mg daily at bedtime for sleep/mood, we will increase Zoloft to 100 mg daily for depression/anxiety. Increased BuSpar to 10 mg twice a day for anxiety. Continue melatonin 5 mg daily at bedtime for sleep. -When necessary Ativan and Geodon for agitation/aggression. -NRT -not needed as patient does not smoke -SW on board for discharge planning.
[2019-09-01] MEDS: MELATONIN 5 MG TABLET PO SCH (20:10)
[2019-09-01] MEDS: DOXEPIN 10 MG CAP PO SCH (20:10)
[2019-09-01] MEDS: busPIRone HCl 10 MG TAB PO SCH (20:10)
[2019-09-01] MEDS: LORazepam 1 MG TAB PO PRN (23:06)
[2019-09-02] MEDS: LORATADINE 10 MG TAB PO SCH (08:27)
[2019-09-02] MEDS: busPIRone HCl 10 MG TAB PO SCH (08:27)
[2019-09-02] MEDS: SERTRALINE 100 MG TAB PO SCH (08:27)
[2019-09-02] MEDS: LORazepam 1 MG TAB PO PRN ×2 (08:27→21:18)
[2019-09-02] MEDS: PANTOPRAZOLE 40 MG TABLET PO SCH (08:27)
[2019-09-02] MEDS: FLUTICASONE 50MCG/SPRAY NASAL 16GM EA NOSTRIL SCH (11:08)
--- NOTE | 2019-09-02 14:35 | P.PN ---
Progress Note - Text Progress Note Date: 09/02/19 Interval History: Patient was seen laying down in her bed and was agreeable to speak to program writer in the office. patient was less tearful today and appeared to be less anxious on exam. She claimed that she had a difficult time sleeping last night and required an Ativan. She states that she has been in bed most morning. She did claim that she is feeling mild improvement in her anxiety and depression. Patient was carrying around a journal with her and claims that tomorrow she would like to share more things with program writer that she has been writing down. Patient also stated that she had nightmares last night. She claims that she has not been going to groups however will attempt to do so. Patient claims that she is okay with increasing her dose of BuSpar and doxepin at this time. she states that some of her family members may visit her today and that she does not want that to happen at this time claiming "I'm not ready for that yet". She claims had fair energy and improving appetite. At this time patient denies any suicidal or homical ideations, intent or plan. Patient denies any auditory, visual hallucinations and denies any paranoia or delusions. Patient denies any side effects from the medications and has been compliant with meds. Mental Status Exam: General Appearance: Patient appears to be stated age is alert, directable and attempts to cooperate. improving hygiene and grooming. Patient is in street clothing and a fair eye contact. Behavior: Patient is seated without any agitated behavior. Appears to be less anxious today. Speech: Patient's speech is fluent and nonpressured. Mood/Affect: Patient reports their mood is mildly improving, affect is congruent and constricted. Suicidality/Homicidality: Patient denies having any suicidal or homicidal ideation intent or plan. Perceptions: Patient denies any auditory or visual hallucinations. Though content/process: There is no evidence of any delusional thought content and thought process is linear and goal-directed. Memory and concentration: AOX3, grossly intact for the purposes of this session. Judgment and insight: poor, mildly improving. Assessment Major depressive disorder, without psychotic features History of PTSD Cluster B personality traits History of alcohol abuse. Plan: -Patient continues to meet criteria for inpatient psychiatric admission for symptom stabilization and safety. Patient has signed adult voluntary form and medication consent and was placed in patient's chart. -Medications: increased doxepin 20 mg daily at bedtime for sleep/mood, we will continue with Zoloft to 100 mg daily for depression/anxiety. Increased BuSpar to 15 mg twice a day for anxiety. Continue melatonin 5 mg daily at bedtime for sleep. -When necessary Ativan and Geodon for agitation/aggression. -NRT -not needed as patient does not smoke -SW on board for discharge planning.
[2019-09-02] MEDS: busPIRone HCl 5 MG TAB PO SCH (21:16)
[2019-09-02] MEDS: MELATONIN 5 MG TABLET PO SCH (21:16)
[2019-09-02] MEDS: DOXEPIN 10 MG CAP PO SCH (21:16)
[2019-09-03] MEDS: busPIRone HCl 5 MG TAB PO SCH ×2 (08:54→20:13)
[2019-09-03] MEDS: PANTOPRAZOLE 40 MG TABLET PO SCH (08:54)
[2019-09-03] MEDS: LORATADINE 10 MG TAB PO SCH (08:55)
[2019-09-03] MEDS: SERTRALINE 100 MG TAB PO SCH (08:55)
[2019-09-03] MEDS: FLUTICASONE 50MCG/SPRAY NASAL 16GM EA NOSTRIL SCH (08:55)
[2019-09-03] MEDS: LORazepam 1 MG TAB PO PRN ×2 (09:40→20:16)
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
[2019-09-03] MEDS: MELATONIN 5 MG TABLET PO SCH (20:13)
[2019-09-03] MEDS: DOXEPIN 10 MG CAP PO SCH (20:14)
[2019-09-03] MEDS ORDERED: PRAZOSIN 1 MG CAP PO SCH (21:00)
[2019-09-04] MEDS: PANTOPRAZOLE 40 MG TABLET PO SCH (09:07)
[2019-09-04] MEDS: LORATADINE 10 MG TAB PO SCH (09:07)
[2019-09-04] MEDS: busPIRone HCl 5 MG TAB PO SCH (09:07)
[2019-09-04] MEDS: FLUTICASONE 50MCG/SPRAY NASAL 16GM EA NOSTRIL SCH (09:07)
[2019-09-04] MEDS: LORazepam 1 MG TAB PO PRN (09:07)
[2019-09-04] MEDS: SERTRALINE 50 MG TAB PO SCH (09:07)
--- NOTE | 2019-09-04 10:38 | P.PN ---
Progress Note - Text Progress Note Date: 09/04/19 Interval History: Patient was seen up at the nurse's desk and was agreeable to speak to typewriter operator automatic in the office. patient appeared to be less anxious today and was more willing to speak to typewriter operator automatic. Patient reflected back on her traumatic memories of the past and her difficult upbringing. Patient also spoke at length about the poor environment at home being around her mother who is negative and patient feels that it is not a good environment for her children. She states that she feels more motivated today and has been trying to make phone calls to apartment buildings in the area that may be able to accept her. She states that she is looking for a "fresh start on life". she states that she went to 1 group last night and today said her goal to not stay in her room and to try to go to another group. she claims that her anxiety and mood have been gradually improving. she states that she is continuing to experience nightmares and difficulty sleeping and requested to have her nighttime medications titrated up. She claims had fair energy and fair appetite. At this time patient denies any suicidal or homical ideations, intent or plan. Patient denies any auditory, visual hallucinations and denies any paranoia or delusions. Patient denies any side effects from the medications and has been compliant with meds. Mental Status Exam: General Appearance: Patient appears to be stated age is alert, directable. fair hygiene and grooming. Patient has fair eye contact. Behavior: Patient is seated without any agitated behavior. Appears to be less anxious Speech: Patient's speech is fluent and nonpressured. soft tone. Mood/Affect: Patient reports their mood/anxiety is mildly improving, affect is congruentand anxious. Suicidality/Homicidality: Patient denies having any suicidal or homicidal ideation intent or plan. Perceptions: Patient denies any auditory or visual hallucinations. Though content/process: There is no evidence of any delusional thought content and thought process is linear and goal-directed. Memory and concentration: AOX3, grossly intact for the purposes of this session. Judgment and insight: mildly improving. Assessment Major depressive disorder, without psychotic features History of PTSD Cluster B personality traits History of alcohol abuse. Plan: -Patient continues to meet criteria for inpatient psychiatric admission for symptom stabilization and safety. Patient has signed adult voluntary form and medication consent and was placed in patient's chart. -Medications: increased doxepin 25 mg daily at bedtime for sleep/mood, we will continue with Zoloft to 150 mg daily for depression/anxiety. increased BuSpar to 20 mg twice a day for anxiety. Continue melatonin 5 mg daily at bedtime for sleep. increased prazosin 2 mg daily at bedtime for nightmares. -When necessary Ativan and Geodon for agitation/aggression. -NRT -not needed as patient does not smoke -SW on board for discharge planning. patient is attempting to make more phone calls for a new apartment. Likely discharge in 1-2 days.
[2019-09-04] MEDS: busPIRone HCl 10 MG TAB PO SCH (20:25)
[2019-09-04] MEDS: DOXEPIN 25 MG CAP PO SCH (20:26)
[2019-09-04] MEDS: LORazepam 0.5 MG TAB PO PRN (20:26)
[2019-09-04] MEDS: PRAZOSIN 1 MG CAP PO SCH (20:26)
[2019-09-04] MEDS: MELATONIN 5 MG TABLET PO SCH (20:26)
[2019-09-05] MEDS: LORazepam 0.5 MG TAB PO PRN ×2 (02:22→20:48)
[2019-09-05] MEDS: FLUTICASONE 50MCG/SPRAY NASAL 16GM EA NOSTRIL SCH (08:18)
[2019-09-05] MEDS: busPIRone HCl 10 MG TAB PO SCH ×2 (08:18→20:48)
[2019-09-05] MEDS: PANTOPRAZOLE 40 MG TABLET PO SCH (08:18)
[2019-09-05] MEDS: SERTRALINE 50 MG TAB PO SCH (08:18)
[2019-09-05] MEDS: LORATADINE 10 MG TAB PO SCH (08:18)
[2019-09-05] MEDS ORDERED: LORazepam 1 MG TAB PO PRN (09:36)
--- NOTE | 2019-09-05 14:23 | P.PN ---
Progress Note - Text Progress Note Date: 09/05/19 Interval History: Patient was seen in her room after lunch and was agreeable to speak to freelance writer in the office. Patient states that she was going to groups and trying to participate as best as she could. Patient claims that her anxiety has been improving however yesterday spoke with her son over the phone who states that patient's mother is $1000 in debt and does not know how she is going to make the rent payment. Patient states that she does not like to hear this kind of news especially about her mother and claims that "this is why I don't want to go back, she got herself into a big mess". Patient also states that her anxiety and mood have been gradually improving on the current medications and is thankful for it. She claims that she has been making calls to different apartments and got her roommate who is discharged today to drop off an application at one of the apartments for her. She states that she is feeling more supported on the unit at this time. She admits to fair energy and fair appetite. She is continuing to deal with thoughts of wanting to isolate herself. She claims that she slept better last night and does not remember having a nightmare. At this time patient denies any suicidal or homical ideations, intent or plan. Patient denies any auditory, visual hallucinations and denies any paranoia or delusions. Patient denies any side effects from the medications and has been compliant with meds. Mental Status Exam: General Appearance: Patient appears to be stated age is alert, directable. fair hygiene and grooming. Patient has improving eye contact. Behavior: Patient is seated without any agitated behavior. Appears to be less anxious Speech: Patient's speech is fluent and nonpressured. soft tone. Mood/Affect: Patient reports their mood/anxiety is mildly improving, affect is congruent Suicidality/Homicidality: Patient denies having any suicidal or homicidal ideation intent or plan. Perceptions: Patient denies any auditory or visual hallucinations. Though content/process: There is no evidence of any delusional thought content and thought process is linear and goal-directed. Memory and concentration: AOX3, grossly intact for the purposes of this session. Judgment and insight: mildly improving. Assessment Major depressive disorder, without psychotic features History of PTSD Cluster B personality traits History of alcohol abuse. Plan: -Patient continues to meet criteria for inpatient psychiatric admission for symptom stabilization and safety. Patient has signed adult voluntary form and medication consent and was placed in patient's chart. -Medications: Continue with doxepin 25 mg daily at bedtime for sleep/mood, continue with Zoloft to 150 mg daily for depression/anxiety. Continue with BuSpar to 20 mg twice a day for anxiety. Continue with melatonin 5 mg daily at bedtime for sleep. Continue with prazosin 2 mg daily at bedtime for nightmares. -When necessary Ativan and Geodon for agitation/aggression. -NRT -not needed as patient does not smoke -SW on board for discharge planning. patient is continuing to make more phone calls for a new apartment. Patient claims that she has submitted one application so far and will be doing more for others. Patient was interested in possibly going to woman residential upon discharge. Likely discharge in 1-2 days
[2019-09-05] MEDS: DOXEPIN 25 MG CAP PO SCH (20:48)
[2019-09-05] MEDS: MELATONIN 5 MG TABLET PO SCH (20:48)
[2019-09-05] MEDS: PRAZOSIN 1 MG CAP PO SCH (20:49)
[2019-09-06] MEDS: ACETAMINOPHEN TAB 325 MG TAB PO PRN ×2 (02:48→19:00)
[2019-09-06] MEDS: LORATADINE 10 MG TAB PO SCH (08:54)
[2019-09-06] MEDS: LORazepam 0.5 MG TAB PO PRN ×2 (08:54→21:02)
[2019-09-06] MEDS: busPIRone HCl 10 MG TAB PO SCH ×2 (08:54→21:02)
[2019-09-06] MEDS: PANTOPRAZOLE 40 MG TABLET PO SCH (08:54)
[2019-09-06] MEDS: FLUTICASONE 50MCG/SPRAY NASAL 16GM EA NOSTRIL SCH (08:54)
[2019-09-06] MEDS: SERTRALINE 50 MG TAB PO SCH (08:54)
[2019-09-06] MEDS ORDERED: SERTRALINE 50 MG TAB PO STA (14:05)
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
[2019-09-06] MEDS ORDERED: PRAZOSIN 1 MG CAP PO SCH (21:00)
[2019-09-06] MEDS ORDERED: MELATONIN 5 MG TABLET PO SCH (21:00)
[2019-09-06] MEDS: DOXEPIN 25 MG CAP PO SCH (21:01)
[2019-09-07] MEDS: LORazepam 0.5 MG TAB PO PRN (06:08)
[2019-09-07 06:27] VITALS: BP 107/67; PULSE 128; RESP 16; TEMP 98.1
[2019-09-07] MEDS: busPIRone HCl 10 MG TAB PO SCH (08:50)
[2019-09-07] MEDS: FLUTICASONE 50MCG/SPRAY NASAL 16GM EA NOSTRIL SCH (08:50)
[2019-09-07] MEDS: PANTOPRAZOLE 40 MG TABLET PO SCH (08:50)
[2019-09-07] MEDS: LORATADINE 10 MG TAB PO SCH (08:51)
[2019-09-07] MEDS ORDERED: SERTRALINE 100 MG TAB PO SCH (09:00)
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
== END 2019-09-07 12:13 | disposition home or self-care (01) | DRG 881 ==
LOC: EC 01:44 → 3MHU 05:29
PROVIDERS: ADMIT Psychiatry & Neurology Psychiatry; ATTEND Psychiatry & Neurology Psychiatry
DX: F32.9 Major depressive disorder, single episode, unspecified (principal); R45.851 Suicidal ideations; F41.0 Panic disorder [episodic paroxysmal anxiety]; F43.10 Post-traumatic stress disorder, unspecified; Z62.810 Personal history of physical and sexual abuse in childhood; Z79.82 Long term (current) use of aspirin; Z79.899 Other long term (current) drug therapy; Z81.8 Family history of other mental and behavioral disorders; Z90.711 Acquired absence of uterus with remaining cervical stump; Z91.5 Personal history of self-harm; Z71.41 Alcohol abuse counseling and surveillance of alcoholic; F60.89 Other specific personality disorders; Z88.1 Allergy status to other antibiotic agents; Z88.0 Allergy status to penicillin; Z88.2 Allergy status to sulfonamides; Z88.8 Allergy status to other drugs, medicaments and biological substances
CPT/HCPCS: 80048; 80053; 80061; 80306; 81001; 81025; 82075; 82248; 83036; 84443; 85025; 99285

== ENCOUNTER 2019-09-10 16:12 | Emergency (ER) | payer OTHER ==
[2019-09-10 16:48] VITALS: BP 133/87; PULSE 118; RESP 18; TEMP 98.5
[2019-09-10 17:38] LABS: Appearance,Urine Clear (Clear); Bacteria,Urine Rare /hpf; Bilirubin,Urine Negative (Negative); Blood,Urine Negative (Negative); Color,Urine Light Yellow; Glucose,Urine (UA) Negative (Negative); Ketones,Urine Negative (Negative); Leukocyte Esterase,Urine Trace (Negative); Mucus,Urine Rare /hpf; Nitrite,Urine Negative (Negative); Protein,Urine Negative (Negative); RBC,Urine <1 /hpf (0-5); Specific Gravity,Urine 1.008 (1.001-1.035); Squamous Epithelial Cell,Urine 4 /hpf (0-4); Urobilinogen,Urine <2.0 mg/dL (<2.0); WBC,Urine 2 /hpf (0-5)
[2019-09-10 18:02] LABS: Amphetamine Screen,Urine Not Detected (NotDetected); Barbiturate Screen,Urine Not Detected (NotDetected); Benzodiazepines Screen,Urine Detected (NotDetected); Cocaine Screen,Urine Not Detected (NotDetected); Methadone Screen, Urine Not Detected (NotDetected); Opiate Screen,Urine Not Detected (NotDetected); Oxycodone Screen, Urine Not Detected (NotDetected); Phencyclidine Screen,Urine Not Detected (NotDetected); Tricyclic Antidepressant,Urine Not Detected (NotDetected); Urn Cannabinoid Scrn Not Detected (NotDetected)
--- NOTE | 2019-09-10 20:46 | ED ---
Psych HPI - General Chief Complaint: Psychiatric Symptoms Stated Complaint: Anxiety Time Seen by Provider: 09/10/19 16:45 Source: patient Mode of arrival: ambulatory - History of Present Illness Initial Comments: The patient is a 49-year-old female with past medical history of alcohol abuse, cocaine abuse and anxiety who presents emergency room with reported anxiety. She states that she was discharged on Tuesday from the hospital here after she had an 8 day stay for anxiety and depression. They did a chest the patient's medications. She is supposed to follow up with [facility] however her appointments are still upcoming. She states that today she was feeling very anxious. She has been sleeping however awakes multiple times per night. Denies palpitations or shortness of breath. She feels erractic with her thoughts. This makes her feel nauseated. She denies any chest pain or shortness of breath. States she's been taking her medications as directed. Has not attempted to hurt herself. Denies being suicidal with a plan however she states "I don't want to live like this". Denies any homicidal thoughts. No hallucinations. She resides with her mother and children. She did call the mobile crisis hotline and her primary care doctor who instructed her to go to the emergency room for further evaluation. There are no other alleviating, precipitating or modifying factors - Related Data Home Medications Medication Instructions Recorded Confirmed Aspirin EC [Ecotrin Low Dose] 81 mg PO DAILY 05/30/19 08/31/19 Cholecalciferol [Vitamin D3 (25 1,000 unit PO DAILY 05/30/19 08/31/19 Mcg = 1000 Iu)] Previous Rx's Medication Instructions Recorded Doxepin [SINEquan] 25 mg PO HS 28 Days cap 09/07/19 Fluticasone Nasal [place] [Flonase 2 spray EA NOSTRIL DAILY #1 spr 09/07/19 Nasal [place]] Loratadine [Claritin] 10 mg PO DAILY 28 Days tab 09/07/19 Melatonin 10 mg PO HS 28 Days tablet 09/07/19 Pantoprazole [Protonix] 40 mg PO AC-BRKFST 28 Days 09/07/19 tablet. Prazosin [Minipress] 3 mg PO HS 28 Days cap 09/07/19 Sertraline [Zoloft] 200 mg PO DAILY 28 Days tab 09/07/19 busPIRone HCl [Buspar] 20 mg PO BID 28 Days tab 09/07/19 Allergies Allergy/AdvReac Type Severity Reaction Status Date / Time hydroxyzine HCl Allergy Intermediate Rash/Hives Verified 09/10/19 16:48 [From Vistaril] hydroxyzine pamoate Allergy Intermediate Rash/Hives Verified 09/10/19 16:48 [From Vistaril] metronidazole [From Flagyl] Allergy Unknown Verified 09/10/19 16:48 Penicillins Allergy Unknown Verified 09/10/19 16:48 Sulfa (Sulfonamide Allergy Unknown Verified 09/10/19 16:48 Antibiotics) Review of Systems ROS Statement: Those systems with pertinent positive or pertinent negative responses have been documented in the HPI. ROS Other: All systems not noted in ROS Statement are negative. Past Medical History Past Medical History: No Reported History Additional Past Medical History / Comment(s): Increased heart rate, hypotension, errythema on upper lip and around mouth. Patient was told its a skin reaction to stress. History of Any Multi-Drug Resistant Organisms: None Reported Past Surgical History: Cholecystectomy Additional Past Surgical History / Comment(s): Partial hysterectomy, bladder suspension, umbilical hernia repair, brast implants, herat catheterization, colonoscopy, endoscopy. Additional Past Anesthesia/Blood Transfusion Reaction / Comment(s): Patient reports having a surgery where she had nausea and vomiting from anesthesia. No previous blood transfusions. Past Psychological History: Anxiety, Depression, Panic Disorder, PTSD Smoking Status: Never smoker Past Alcohol Use History: None Reported Past Drug Use History: None Reported, Cocaine, Prescription Drug Abuse General Exam Limitations: no limitations General appearance: alert, in no apparent distress, anxious Head exam: Present: atraumatic, normocephalic, normal inspection Eye exam: Present: normal appearance, PERRL, EOMI. Absent: scleral icterus, conjunctival injection, periorbital swelling ENT exam: Present: normal exam, mucous membranes moist Neck exam: Present: normal inspection. Absent: tenderness, meningismus, lymphadenopathy Respiratory exam: Present: normal lung sounds bilaterally. Absent: respiratory distress, wheezes, rales, rhonchi, stridor Cardiovascular Exam: Present: regular rate, normal rhythm, normal heart sounds. Absent: systolic murmur, diastolic murmur, rubs, gallop, clicks GI/Abdominal exam: Present: soft, normal bowel sounds. Absent: distended, tenderness, guarding, rebound, rigid Extremities exam: Present: normal inspection, full ROM, normal capillary refill. Absent: tenderness, pedal edema, joint swelling, calf tenderness Back exam: Present: normal inspection Neurological exam: Present: alert, oriented X3, CN II-XII intact Psychiatric exam: Present: normal affect, normal mood Skin exam: Present: warm, dry, intact, normal color. Absent: rash Course Vital Signs 09/10/19 16:45 Temperature 98.5 F Pulse Rate 118 H Respiratory 18 Rate Blood Pressure 133/87 O2 Sat by Pulse 99 Oximetry Medical Decision Making - Medical Decision Making Upon arrival the patient was placed into room 23. Her history discuss them was performed. I did obtain a urine specimen and urine drug screen on the patient. Demonstrates trace esterase with rare bacteria. Benzodiazepines are detected however no other drugs of abuse. I did consult EPS to evaluate the patient. The EPS nurse does discuss the patient's case with the psychiatrist. She does have close follow up with [facility]. She is not actively suicidal or homicidal. The patient is requesting something for anxiety before going home. I did give her a Ativan as well as 4 mg of Zofran. I instructed her to follow-up with [facility] as directed. Return to the emergency room for any new or worsening symptoms. The patient was then discharged home in stable condition - Lab Data Lab Results 09/10/19 09/10/19 Range/Units 17:30 17:30 Urine Color Light Yellow Urine Appearance Clear (Clear) Urine pH 6.0 (5.0-8.0) Ur Specific [place] 1.008 (1.001-1.035) Urine Protein Negative (Negative) Urine Glucose (UA) Negative (Negative) Urine Ketones Negative (Negative) Urine Blood Negative (Negative) Urine Nitrite Negative (Negative) Urine Bilirubin Negative (Negative) Urine Urobilinogen <2.0 (<2.0) mg/dL Ur Leukocyte Esterase Trace H (Negative) Urine RBC <1 (0-5) /hpf Urine WBC 2 (0-5) /hpf Ur Squamous Epith Cells 4 (0-4) /hpf Urine Bacteria Rare H (None) /hpf Urine Mucus Rare H (None) /hpf Urine Opiates Screen Not Detected (NotDetected) Ur Oxycodone Screen Not Detected (NotDetected) Urine Methadone Screen Not Detected (NotDetected) Ur Propoxyphene Screen Not Detected (NotDetected) Ur Barbiturates Screen Not Detected (NotDetected) U Tricyclic Antidepress Not Detected (NotDetected) Ur Phencyclidine Scrn Not Detected (NotDetected) Ur Amphetamines Screen Not Detected (NotDetected) U Methamphetamines Scrn Not Detected (NotDetected) U Benzodiazepines Scrn Detected H (NotDetected) Urine Cocaine Screen Not Detected (NotDetected) U Marijuana (THC) Screen Not Detected (NotDetected) Disposition Clinical Impression: Acute anxiety Disposition: HOME SELF-CARE Condition: Stable Instructions (If sedation given, give patient instructions): Anxiety (ED) Additional Instructions: Follow up with [facility] at your scheduled appointment. Return to the ED for any new or worsening symptoms. Is patient prescribed a controlled substance at d/c from ED?: No Referrals: Madina Nava MD [Primary Care Provider] - 1-2 days Time of Disposition: 20:46
[2019-09-10] MEDS ORDERED: LORazepam 1 MG TAB PO STA (21:02)
[2019-09-10] MEDS ORDERED: ONDANSETRON ODT 4 MG TAB PO STA (21:02)
== END 2019-09-10 21:26 | disposition home or self-care (01) ==
LOC: EC 16:12
DX: F41.9 Anxiety disorder, unspecified (principal); I10 Essential (primary) hypertension; Z79.82 Long term (current) use of aspirin; Z88.8 Allergy status to other drugs, medicaments and biological substances; Z88.0 Allergy status to penicillin; Z88.2 Allergy status to sulfonamides; Z88.1 Allergy status to other antibiotic agents
CPT/HCPCS: 80306; 81001; 82075; 99284

== ENCOUNTER 2020-06-26 02:47 | Inpatient (IN) | payer MEDICAID, OTHER ==
[2020-06-26] MEDS ORDERED: LORazepam 1 MG TAB PO STA ×2 (03:11→05:14)
--- NOTE | 2020-06-26 03:11 | ED ---
Psych HPI - General Chief Complaint: Psychiatric Symptoms Stated Complaint: Petition Time Seen by Provider: 06/26/20 02:59 Source: patient, EMS Mode of arrival: EMS Limitations: no limitations - History of Present Illness MD Complaint: suicidal ideation, feels depressed -: days(s) Associated Psychiatric Symptoms: depression Quality: getting worse Improves With: none Worsens With: none Context: recent alcohol abuse Associated Symptoms: denies other symptoms - Related Data Home Medications Medication Instructions Recorded Confirmed Aspirin EC [Ecotrin Low Dose] 81 mg PO DAILY 05/30/19 08/31/19 Cholecalciferol [Vitamin D3 (25 1,000 unit PO DAILY 05/30/19 08/31/19 Mcg = 1000 Iu)] Previous Rx's Medication Instructions Recorded Doxepin [SINEquan] 25 mg PO HS 28 Days cap 09/07/19 Fluticasone Nasal [place] [Flonase 2 spray EA NOSTRIL DAILY #1 spr 09/07/19 Nasal [place]] Loratadine [Claritin] 10 mg PO DAILY 28 Days tab 09/07/19 Melatonin 10 mg PO HS 28 Days tablet 09/07/19 Pantoprazole [Protonix] 40 mg PO [id number] 28 Days 09/07/19 tablet. Prazosin [Minipress] 3 mg PO HS 28 Days cap 09/07/19 Sertraline [Zoloft] 200 mg PO DAILY 28 Days tab 09/07/19 busPIRone HCl [Buspar] 20 mg PO BID 28 Days tab 09/07/19 Allergies Allergy/AdvReac Type Severity Reaction Status Date / Time hydroxyzine HCl Allergy Intermediate Rash/Hives Verified 06/26/20 03:11 [From Vistaril] hydroxyzine pamoate Allergy Intermediate Rash/Hives Verified 06/26/20 03:11 [From Vistaril] metronidazole [From Flagyl] Allergy Unknown Verified 06/26/20 03:11 Penicillins Allergy Unknown Verified 06/26/20 03:11 Sulfa (Sulfonamide Allergy Unknown Verified 06/26/20 03:11 Antibiotics) Review of Systems ROS Statement: Those systems with pertinent positive or pertinent negative responses have been documented in the HPI. ROS Other: All systems not noted in ROS Statement are negative. Constitutional: Denies: fever, chills Respiratory: Denies: cough, dyspnea Cardiovascular: Denies: chest pain, palpitations, syncope Gastrointestinal: Denies: abdominal pain, vomiting, diarrhea Genitourinary: Denies: dysuria, hematuria Musculoskeletal: Denies: back pain Skin: Denies: rash Neurological: Denies: headache, weakness, numbness Psychiatric: Reports: anxiety, depression, suicidal thoughts. Denies: auditory hallucinations, visual hallucinations, homicidal thoughts Past Medical History Past Medical History: No Reported History Additional Past Medical History / Comment(s): Increased heart rate, hypotension, errythema on upper lip and around mouth. Patient was told its a skin reaction to stress. History of Any Multi-Drug Resistant Organisms: None Reported Past Surgical History: Cholecystectomy Additional Past Surgical History / Comment(s): Partial hysterectomy, bladder suspension, umbilical hernia repair, brast implants, herat catheterization, colonoscopy, endoscopy. Additional Past Anesthesia/Blood Transfusion Reaction / Comment(s): Patient reports having a surgery where she had nausea and vomiting from anesthesia. No previous blood transfusions. Past Psychological History: Anxiety, Depression, Panic Disorder, PTSD Past Alcohol Use History: None Reported Past Drug Use History: None Reported, Cocaine, Prescription Drug Abuse General Exam Limitations: no limitations General appearance: alert, in no apparent distress Head exam: Present: atraumatic, normocephalic Eye exam: Present: normal appearance. Absent: scleral icterus, conjunctival injection Respiratory exam: Present: normal lung sounds bilaterally. Absent: respiratory distress, wheezes, rales, rhonchi, stridor Cardiovascular Exam: Present: regular rate, normal rhythm, normal heart sounds. Absent: systolic murmur, diastolic murmur, rubs, gallop GI/Abdominal exam: Present: soft. Absent: distended, tenderness, guarding, rebound, rigid, mass Extremities exam: Present: normal inspection, normal capillary refill. Absent: pedal edema, calf tenderness Back exam: Present: normal inspection. Absent: CVA tenderness (R), CVA tenderness (L) Neurological exam: Present: alert Psychiatric exam: Present: depressed, anxious, suicidal ideation. Absent: agitated, flat affect, manic, homicidal ideation Skin exam: Present: warm, dry, intact, normal color. Absent: rash Course Vital Signs 06/26/20 06/26/20 02:57 04:55 Temperature 98.3 F 98.0 F Pulse Rate 102 H 102 H Respiratory 18 18 Rate Blood Pressure 132/84 133/79 O2 Sat by Pulse 95 95 Oximetry Medical Decision Making - Lab Data Lab Results 06/26/20 Range/Units 04:16 Urine Opiates Screen Not Detected (NotDetected) Ur Oxycodone Screen Not Detected (NotDetected) Urine Methadone Screen Not Detected (NotDetected) Ur Propoxyphene Screen Not Detected (NotDetected) Ur Barbiturates Screen Not Detected (NotDetected) U Tricyclic Antidepress Not Detected (NotDetected) Ur Phencyclidine Scrn Not Detected (NotDetected) Ur Amphetamines Screen Not Detected (NotDetected) U Methamphetamines Scrn Not Detected (NotDetected) U Benzodiazepines Scrn Not Detected (NotDetected) Urine Cocaine Screen Not Detected (NotDetected) U Marijuana (THC) Screen Not Detected (NotDetected) Disposition Clinical Impression: Suicidal ideation, Depression Disposition: ADMITTED IP TO THIS HOSP Condition: Fair Is patient prescribed a controlled substance at d/c from ED?: No Referrals: None,Stated [Primary Care Provider] - 1-2 days
[2020-06-26 04:32] LABS: Amphetamine Screen,Urine Not Detected (NotDetected); Barbiturate Screen,Urine Not Detected (NotDetected); Benzodiazepines Screen,Urine Not Detected (NotDetected); Cocaine Screen,Urine Not Detected (NotDetected); Methadone Screen, Urine Not Detected (NotDetected); Opiate Screen,Urine Not Detected (NotDetected); Oxycodone Screen, Urine Not Detected (NotDetected); Phencyclidine Screen,Urine Not Detected (NotDetected); Tricyclic Antidepressant,Urine Not Detected (NotDetected); Urn Cannabinoid Scrn Not Detected (NotDetected)
[2020-06-26] MEDS ORDERED: ZIPRASIDONE 20 MG VIAL IM PRN (07:16)
[2020-06-26] MEDS ORDERED: MAGNESIUM HYDROXIDE 2,400 MG/10 ML CUP PO PRN (07:16)
[2020-06-26] MEDS ORDERED: ACETAMINOPHEN TAB 325 MG TAB PO PRN (07:16)
[2020-06-26] MEDS ORDERED: MAG HYDROX/AL HYDROX/SIMETH 30 ML CUP PO PRN (07:16)
[2020-06-26] MEDS ORDERED: LORazepam 2 MG/ML INJ IM PRN (07:23)
[2020-06-26] MEDS: MULTIVITAMINS, THERA 1 EACH TAB PO SCH (09:14)
[2020-06-26] MEDS: VORTIOXETINE HYDROBROMIDE 20 MG TABLET PO SCH (09:14)
[2020-06-26] MEDS: NALTREXONE HCL 50 MG TAB PO SCH (11:35)
[2020-06-26 11:36] LABS: Hemoglobin A1C 5.5 % (4.0-6.0)
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
[2020-06-26] MEDS: LORazepam 1 MG TAB PO PRN ×2 (13:52→20:54)
[2020-06-26] MEDS: OXcarbazepine 300 MG TAB PO SCH (20:52)
[2020-06-26 22:23] LABS: ALT 35 U/L (4-34); AST 58 U/L (14-36); African American GFR (CKD) >90 (>60 ml/min/1.73 sqM); Albumin 3.8 g/dL (3.5-5.0); Alkaline Phosphatase 121 U/L (38-126); Anion Gap 5 mmol/L; Blood Urea Nitrogen 8 mg/dL (7-17); Calcium 8.9 mg/dL (8.4-10.2); Carbon Dioxide 28 mmol/L (22-30); Chloride 103 mmol/L (98-107); Glucose 91 mg/dL (74-99); Magnesium 1.8 mg/dL (1.6-2.3); Non-African American GFR(CKD) >90 (>60 ml/min/1.73 sqM); Potassium 4.4 mmol/L (3.5-5.1); Sodium 136 mmol/L (137-145); Total Bilirubin 0.3 mg/dL (0.2-1.3); Total Protein 6.8 g/dL (6.3-8.2)
[2020-06-26 22:26] LABS: HGB 13.4 gm/dL (11.4-16.0); MCH 32.5 pg (25.0-35.0); MCHC 31.1 g/dL (31.0-37.0); MCV 104.2 fL (80.0-100.0); Macrocytosis Moderate; Mean Platelet Volume 8.9; Platelet Count 235 k/uL (150-450); RBC 4.13 m/uL (3.80-5.40); RDW 14.4 % (11.5-15.5); WBC 7.9 k/uL (3.8-10.6)
[2020-06-26 23:02] LABS: Lymphocytes # (M) 2.29 k/uL (1.0-4.8); Monocytes # (M) 0.32 k/uL (0-1.0); Neutrophils % (M) 62 %; Nucleated Red Blood Cells 0 /100 WBC (0-0); Total Cells Counted 100
--- NOTE | 2020-06-26 23:14 | P.CONS ---
History of Present Illness - Reason for Consult Consult date: 06/26/20 - History of Present Illness Patient is a 50-year-old female with a PMH of EtOH abuse and depression who presented to the ED with complaints of suicidal ideation. The patient was admitted to the mental health unit where she was seen and evaluated. The patient notes that she had been feeling poorly for the past few days and had thoughts about jumping off a bridge. She reports feeling better after admission. She notes drinking a large jug of wine daily and reports that she gets shaky if she doesn't drink for a few hours. Denied any history of DTs or any hospitalizations due to her alcohol abuse. Notes feeling shaky at time of the interview. Denied alcohol withdrawal seizures. Denied any additional complaints. He denied chest pain, shortness of fever, chills, cough, nausea, vomiting, abdominal pain, or diarrhea. Review of Systems Pertinent positives and negatives as discussed in HPI, a complete review of systems was performed and all other systems are negative. Past Medical History Past Medical History: No Reported History Additional Past Medical History / Comment(s): Increased heart rate, hypotension, errythema on upper lip and around mouth. Patient was told its a skin reaction to stress. currentlyl had rectocele. History of Any Multi-Drug Resistant Organisms: None Reported Past Surgical History: Cholecystectomy Additional Past Surgical History / Comment(s): Partial hysterectomy, bladder suspension, umbilical hernia repair, breast implants, herat catheterization, colonoscopy, endoscopy. Additional Past Anesthesia/Blood Transfusion Reaction / Comm: Patient reports having a surgery where she had nausea and vomiting from anesthesia. No previous blood transfusions. Past Psychological History: Anxiety, Depression, Panic Disorder, PTSD Additional Psychological History / Comment(s): Borderline personality disorder. History of 20 inpatient psychiatric admissions. Smoking Status: Never smoker Past Alcohol Use History: None Reported Past Drug Use History: None Reported, Cocaine, Prescription Drug Abuse Additional Drug Use History / Comment(s): Vicodin. 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 Medications and Allergies Home Medications Medication Instructions Recorded Confirmed Type Multivitamins, Thera [Multivitamin 1 tab PO DAILY 06/26/20 06/26/20 History (formulary)] OXcarbazepine [Trileptal] 600 mg PO HS 06/26/20 06/26/20 History Soy Isofla/Blk Cohosh/Mag Bark 155 mg PO DAILY 06/26/20 06/26/20 History [Estroven 155 mg Capsule] Vortioxetine Hydrobromide 20 mg PO HS 06/26/20 06/26/20 History [Trintellix] diphenhydrAMINE [Benadryl] 50 mg PO HS 06/26/20 06/26/20 History Allergies Allergy/AdvReac Type Severity Reaction Status Date / Time hydroxyzine HCl Allergy Intermediate Rash/Hives Verified 06/26/20 08:09 [From Vistaril] hydroxyzine pamoate Allergy Intermediate Rash/Hives Verified 06/26/20 08:09 [From Vistaril] metronidazole [From Flagyl] Allergy Unknown Verified 06/26/20 08:09 Penicillins Allergy Unknown Verified 06/26/20 08:09 Sulfa (Sulfonamide Allergy Unknown Verified 06/26/20 08:09 Antibiotics) Physical Exam Vitals: Vital Signs Temp Pulse Pulse Resp BP BP Pulse Ox 06/26/20 20:59 114 H 121/84 06/26/20 13:54 104 H 20 134/90 06/26/20 06:31 97.1 F L 106 H 18 133/91 06/26/20 04:55 98.0 F 102 H 18 133/79 95 06/26/20 02:57 98.3 F 102 H 18 132/84 95 General: non toxic, no distress, appears at stated age, overweight Derm: no unusual rashes/lesions no unusual ecchymoses, warm, dry Head: atraumatic, normocephalic, symmetric Eyes: EOMI, no lid lag, anicteric sclera, pupils equal round reactive to light ENT: Nose and ears atraumatic, no thrush, no pharyngeal erythema Neck: No thyromegaly, no cervical lymphadenopathy, trachea midline, supple Mouth: no lip lesion, mucus membranes moist Cardiovascular: S1S2 reg, no murmur, positive posterior tibial pulse bilateral, no edema, capillary refill less than 2 seconds Lungs: CTA bilateral, no rhonchi, no rales , no accessory muscle use Abdominal: soft, nontender to palpation, no guarding, no appreciable organomegaly, normal bowel sounds Ext: no gross muscle atrophy, muscle strength 5 out of 5 in all 4 extremities grossly, no contractures, Neuro: CN II-XI grossly intact, light touch intact all 4 extremities, finger to nose within normal limits, mild outstretched hand tremor Psych: Alert, oriented, flat affect Results CBC & Chem 7: 06/26/20 07:20 10 07:20 Labs: Abnormal Lab Results - Last 24 Hours (Table) 06/26/20 06/26/20 Range/Units 07: 07:20 MCV 104.2 H (80.0-100.0) fL Sodium 136 L (137-145) mmol/L AST 58 H (14-36) U/L ALT 35 H (4-34) U/L Assessment and Plan Plan: EtOH abuse, impending withdrawal -Start thiamine, folic acid, multivitamins -Start Librium -Monitor BMP and magnesium daily for the next 3 days and replace as needed Depression and suicidal ideation -As per psychiatry Thank you for allowing us to participate in the care of this patient. We will follow peripherally. Do not hesitate to contact us with questions. Someone can be reached from the [facility] hospitalist group at all hours of the day at [phone].
[2020-06-27] MEDS: LORazepam 1 MG TAB PO PRN ×4 (06:55→23:05)
[2020-06-27] MEDS: VORTIOXETINE HYDROBROMIDE 20 MG TABLET PO SCH (08:39)
[2020-06-27] MEDS: MULTIVITAMINS, THERA 1 EACH TAB PO SCH (08:39)
[2020-06-27] MEDS: NALTREXONE HCL 50 MG TAB PO SCH (08:39)
[2020-06-27 08:49] LABS: ALT 40 U/L (4-34); AST 65 U/L (14-36); African American GFR (CKD) >90 (>60 ml/min/1.73 sqM); Albumin 3.8 g/dL (3.5-5.0); Alkaline Phosphatase 118 U/L (38-126); Anion Gap 4 mmol/L; Blood Urea Nitrogen 9 mg/dL (7-17); Calcium 8.7 mg/dL (8.4-10.2); Carbon Dioxide 28 mmol/L (22-30); Chloride 104 mmol/L (98-107); Cholesterol 217 mg/dL (<200); Glucose 90 mg/dL (74-99); HDL Cholesterol 82 mg/dL (40-60); LDL Cholesterol,Calculated 117 mg/dL (0-99); Magnesium 1.9 mg/dL (1.6-2.3); Non-African American GFR(CKD) >90 (>60 ml/min/1.73 sqM); Sodium 136 mmol/L (137-145); Total Bilirubin 0.6 mg/dL (0.2-1.3); Total Protein 6.8 g/dL (6.3-8.2); Triglycerides 90 mg/dL (<150)
[2020-06-27] MEDS ORDERED: OXcarbazepine 150 MG TAB PO SCH (09:00)
--- NOTE | 2020-06-27 09:44 | P.PN ---
Progress Note - Text Progress Note Date: 06/27/20 Interval History: Patient was seen thing in bed and was directable and agreeable to speak with curriculum writer in the office. Patient is expressing significant withdrawal symptoms including nausea, headache, and tremor. She reports ongoing depressive symptoms as well. She states that her suicidal ideation is not as bad as before. She states that most of her thoughts are preoccupied with getting over withdrawal. She denies any homicidal ideation, intention, and/or plan. Patient denies any auditory, visual hallucinations and denies any paranoia or delusions. Patient denies any side effects from the medications and has been compliant with meds. Patient was started on Librium for alcohol withdrawal symptoms. Patient does express interest in rehab upon discharge. Mental Status Exam: General Appearance: Patient appears to be stated age is alert, directable, and cooperative. Behavior: Patient is calmly seated without any agitated behavior. Speech: Patient's speech is fluent and nonpressured. Mood/Affect: Mood is nauseous and ill, affect is congruent and malaised. Suicidality/Homicidality: Patient denies having any suicidal or homicidal ideation intent or plan. Perceptions: Patient denies any visual hallucinations and denies any auditory hallucinations Though content/process: There is no evidence of any delusional thought content and thought process is linear and goal-directed. Memory and concentration: AOX3, grossly intact for the purposes of this session Judgment and insight: Improving mildly Assessment Major depressive disorder, recurrent, severe, without psychotic features Posttraumatic stress disorder Alcohol use disorder Borderline personality disorder Plan: -Patient continues to meet criteria for inpatient psychiatric admission for symptom stabilization and safety. Patient has signed adult voluntary form and medication consent and was placed in patient's chart. -Medications: Continue Trileptal 150 mg by mouth every morning, 600 mg by mouth at bedtime for mood stabilization/impulsivity Continuation Telex 20 mg by mouth daily for depression/anxiety/PTSD Continue naltrexone 50 mg by mouth daily for alcohol use disorder -CIWA protocol with Librium and Ativan PRN for ETOH withdrawal -When necessary Ativan and Geodon for agitation/aggression. -NRT - nicotine patch -SW on board for discharge planning. Encouraged the patient to participate in milieu.
[2020-06-27 09:46] LABS: Basophils # (A) 0.1 k/uL (0-0.2); Basophils % (A) 2 %; Eosinophils # (A) 0.2 k/uL (0-0.7); Eosinophils % (A) 3 %; HCT 42.5 % (34.0-46.0); HGB 14.7 gm/dL (11.4-16.0); Lymphocytes # (A) 1.3 k/uL (1.0-4.8); Lymphocytes % (A) 21 %; MCH 36.3 pg (25.0-35.0); MCHC 34.5 g/dL (31.0-37.0); MCV 105.4 fL (80.0-100.0); Macrocytosis Moderate; Mean Platelet Volume 7.2; Monocytes # (A) 0.4 k/uL (0-1.0); Monocytes % (A) 7 %; Neutrophils # (A) 4.1 k/uL (1.3-7.7); Neutrophils % (A) 67 %; Platelet Count 234 k/uL (150-450); RBC 4.03 m/uL (3.80-5.40); RDW 13.8 % (11.5-15.5); WBC 6.2 k/uL (3.8-10.6)
[2020-06-27] MEDS: chlordiazePOXIDE 25 MG CAP PO SCH ×2 (15:55→21:09)
--- NOTE | 2020-06-27 17:23 | P.PN ---
Subjective Progress Note Date: 06/27/20 Patient was seen and examined. No acute events overnight. Patient reports shakiness related to alcohol withdrawal. States that her last drink was on Tuesday. She denies any chest pain, shortness breath or palpitations. No nausea or vomiting. No fever or chills. Objective - Vital Signs Vital signs: Vital Signs Temp 97.4 F L 06/27/20 16:13 Pulse 99 06/27/20 16:13 Resp 20 06/27/20 11:16 BP 137/87 06/27/20 16:13 Pulse Ox 96 06/27/20 04:46 - Exam General: [non toxic], [no distress], [appears at stated age] Derm: [warm], [dry] Head: [atraumatic], [normocephalic], [symmetric] Eyes: [EOMI], [no lid lag], [anicteric sclera] Mouth: [no lip lesion], [mucus membranes moist] Cardiovascular: [S1S2 reg], [tachycardia] Lungs: [CTA bilateral], [no rhonchi, no rales] , [no accessory muscle use] Psych: [Alert], [oriented], [appropriate affect] - Labs CBC & Chem 7: 06/27/20 08:13 06/27/20 08:13 Labs: Abnormal Lab Results - Last 24 Hours (Table) 06/26/20 06/26/20 06/27/20 Range/Units 07:20 07:20 08:13 MCV 104.2 H 105.4 H (80.0-100.0) fL MCH 36.3 H (25.0-35.0) pg Sodium 136 L (137-145) mmol/L AST 58 H (14-36) U/L ALT 35 H (4-34) U/L Cholesterol (<200) mg/dL LDL Cholesterol, Calc (0-99) mg/dL HDL Cholesterol (40-60) mg/dL 06/27/20 Range/Units 08:13 MCV (80.0-100.0) fL MCH (25.0-35.0) pg Sodium 136 L (137-145) mmol/L AST 65 H (14-36) U/L ALT 40 H (4-34) U/L Cholesterol 217 H (<200) mg/dL LDL Cholesterol, Calc 117 H (0-99) mg/dL HDL Cholesterol 82 H (40-60) mg/dL Assessment and Plan Assessment: EtOH abuse, impending withdrawal -Start thiamine, folic acid, multivitamins -Increase Librium from 10 mg to 25 mg by mouth TID with Ativan as needed. -Continue CIWA protocol -Monitor BMP and magnesium daily for the next 3 days and replace as needed [Increased Librium. Continue CIWA protocol. Patient appears hemodynamically stable at this time. We will continue to follow this patient clinically.]
[2020-06-27] MEDS: OXcarbazepine 300 MG TAB PO SCH (21:09)
[2020-06-28] MEDS: LORazepam 1 MG TAB PO PRN ×3 (07:08→20:33)
[2020-06-28 08:05] LABS: African American GFR (CKD) >90 (>60 ml/min/1.73 sqM); Anion Gap 6 mmol/L; Blood Urea Nitrogen 10 mg/dL (7-17); Carbon Dioxide 28 mmol/L (22-30); Chloride 103 mmol/L (98-107); Glucose 95 mg/dL (74-99); Non-African American GFR(CKD) >90 (>60 ml/min/1.73 sqM); Sodium 137 mmol/L (137-145)
--- NOTE | 2020-06-28 08:27 | P.PN ---
Progress Note - Text Progress Note Date: 06/28/20 Interval history: Patient was seen resting in bed and was directable and agreeable to speak with advertising copy writer. Patient reports that she feels like she has elevated anxiety despite receiving Ativan and Valium for alcohol withdrawal. At this time patient denies any suicidal or homicidal ideations intent or plan. Denies any Auditory or visual hallucinations. Patient denies any side effects from the medications and has been compliant with meds. Mental status exam: General Appearance: Patient appears to be stated age is alert, directable, and cooperative. Behavior: No agitated behavior. Patient is calm and directable Speech: Patient's speech is fluent and nonpressured. Mood/Affect: Mood is improving mildly, she endorses elevated anxiety, affect is malaised and constricted. Suicidality/Homicidality: Patient denies having any suicidal or homicidal ideation intent or plan. Perceptions: Patient denies any auditory or visual hallucinations. Though content/process: There is no evidence of any delusional thought content and thought process is linear and goal-directed. Memory and concentration: AOX3, grossly intact for the purposes of this session Judgment and insight: improving mildly Assessment/Plan: Continue with current diagnosis. Patient continues to meet steph maxwell for inpatient psychiatric admission for symptom stabilization and safety. We'll increase her Trileptal to 300 mg every morning and 600 mg daily at bedtime. We will continue current medication regimen otherwise. Monitor for medication compliance and for any psychotropic medication side effects. Will continue to monitor ongoing response to treatment. Encouraged participation in milieu.
[2020-06-28] MEDS: OXcarbazepine 300 MG TAB PO SCH ×2 (10:19→20:34)
[2020-06-28] MEDS: VORTIOXETINE HYDROBROMIDE 20 MG TABLET PO SCH (10:19)
[2020-06-28] MEDS: NALTREXONE HCL 50 MG TAB PO SCH (10:19)
[2020-06-28] MEDS: MULTIVITAMINS, THERA 1 EACH TAB PO SCH (10:19)
[2020-06-28] MEDS: chlordiazePOXIDE 25 MG CAP PO SCH ×3 (10:19→20:33)
[2020-06-29] MEDS: MULTIVITAMINS, THERA 1 EACH TAB PO SCH (08:28)
[2020-06-29] MEDS: chlordiazePOXIDE 25 MG CAP PO SCH ×3 (08:28→20:13)
[2020-06-29] MEDS: VORTIOXETINE HYDROBROMIDE 20 MG TABLET PO SCH (08:29)
[2020-06-29] MEDS: OXcarbazepine 300 MG TAB PO SCH ×2 (08:29→20:13)
[2020-06-29] MEDS: NALTREXONE HCL 50 MG TAB PO SCH (08:29)
[2020-06-29] MEDS: LORazepam 1 MG TAB PO PRN ×2 (09:29→18:19)
--- NOTE | 2020-06-29 10:04 | P.PN ---
Progress Note - Text Progress Note Date: 06/29/20 Interval history: Patient was seen wandering the hallways and was directable and agreeable to speak with credit underwriter. Patient reports that overall she is feeling better but states elevated anxiety is constantly a problem. She continues to report ongoing stressors at home and in particular with her relationship with her nephew and mother. She is adamant about trying to stop using alcohol. At this time patient denies any suicidal or homicidal ideations intent or plan. Denies any Auditory or visual hallucinations. Patient denies any side effects from the medications and has been compliant with meds. She reports continued cravings for alcohol. Mental status exam: General Appearance: Patient appears to be stated age is alert, directable, and cooperative. Behavior: No agitated behavior. Patient is calm and directable Speech: Patient's speech is fluent and nonpressured. Mood/Affect: Mood is anxious, affect is congruent and appropriately tearful. Suicidality/Homicidality: Patient denies having any suicidal or homicidal ideation intent or plan. Perceptions: Patient denies any auditory or visual hallucinations. Though content/process: There is no evidence of any delusional thought content and thought process is linear and goal-directed. Memory and concentration: AOX3, grossly intact for the purposes of this session Judgment and insight: improving mildly Assessment/Plan: Continue with current diagnosis. Patient continues to meet criteria for inpatient psychiatric admission for symptom stabilization and safety. Patient will be maintained on current psychotropic medication regimen. Monitor for medication compliance and for any psychotropic medication side effects. Will continue to monitor ongoing response to treatment. Encouraged participation in milieu.
[2020-06-29] MEDS ORDERED: LOPERAMIDE 2 MG CAP PO PRN (20:06)
[2020-06-30] MEDS: LORazepam 1 MG TAB PO PRN ×2 (03:11→11:24)
[2020-06-30] MEDS: NALTREXONE HCL 50 MG TAB PO SCH (09:09)
[2020-06-30] MEDS: VORTIOXETINE HYDROBROMIDE 20 MG TABLET PO SCH (09:09)
[2020-06-30] MEDS: chlordiazePOXIDE 25 MG CAP PO SCH ×3 (09:09→20:43)
[2020-06-30] MEDS: MULTIVITAMINS, THERA 1 EACH TAB PO SCH (09:10)
[2020-06-30] MEDS: OXcarbazepine 300 MG TAB PO SCH ×2 (09:10→20:39)
--- NOTE | 2020-06-30 09:50 | P.PN ---
Progress Note - Text Progress Note Date: 06/30/20 Interval History: Patient was seen wandering the hallways and was directable and agreeable to speak with bond underwriter in the office. Patient continues to endorse withdrawal symptoms but states that these are overall better. She reports that she has been trying to contact her therapist and is expressing a strong desire to move into a new living situation so that she may "get control of my life." She is currently not endorsing any suicidal or homicidal ideation, intention, and/or plan. She is denying any auditory or visual hallucinations. She denies any paranoia or delusions. She is not endorsing any significant side effects of her medications. She continues to endorse poor sleep. She states that she is allergic to Vistaril, has not had any benefit from trazodone, or melatonin. We discussed at length that heavy alcohol use has significantly impacted her sleep hygiene. Mental Status Exam: General Appearance: Patient appears to be stated age is alert, directable, and cooperative. Behavior: No agitated behavior. Patient is calm and directable Speech: Patient's speech is fluent and nonpressured. Mood/Affect: Mood is anxious, affect is congruent and appropriately tearful. Suicidality/Homicidality: Patient denies having any suicidal or homicidal ideation intent or plan. Perceptions: Patient denies any auditory or visual hallucinations. Though content/process: There is no evidence of any delusional thought content and thought process is linear and goal-directed. Memory and concentration: AOX3, grossly intact for the purposes of this session Judgment and insight: improving mildly Assessment Major depressive disorder, recurrent, severe, without psychotic features Posttraumatic stress disorder Alcohol use disorder Borderline personality disorder Plan: -Patient continues to meet criteria for inpatient psychiatric admission for symptom stabilization and safety. Patient has signed adult voluntary form and medication consent and was placed in patient's chart. -Medications: Increase Trileptal to 450 mg by mouth every morning, 600 mg by mouth daily at bedtime for mood stabilization/impulsivity Continue Trintellix 20 mg by mouth daily for depression/anxiety/PTSD Continue naltrexone 50 mg by mouth daily for alcohol use disorder Will consider today weaning of Ativan or Librium. -When necessary Ativan and Geodon for agitation/aggression. -NRT - nicotine patch -SW on board for discharge planning. Encouraged the patient to participate in [place] [facility].
[2020-07-01] MEDS: LORazepam 1 MG TAB PO PRN (02:09)
[2020-07-01 02:24] VITALS: TEMP 98.8
[2020-07-01] MEDS: MULTIVITAMINS, THERA 1 EACH TAB PO SCH (08:50)
[2020-07-01] MEDS: chlordiazePOXIDE 25 MG CAP PO SCH (08:50)
[2020-07-01] MEDS: VORTIOXETINE HYDROBROMIDE 20 MG TABLET PO SCH (08:50)
[2020-07-01] MEDS: NALTREXONE HCL 50 MG TAB PO SCH (08:50)
[2020-07-01] MEDS ORDERED: OXcarbazepine 150 MG TAB PO SCH (09:00)
--- NOTE | 2020-07-01 09:33 | P.PN ---
Progress Note - Text Progress Note Date: 07/01/20 Interval History: Patient was seen resting in bed and was directable and agreeable to speak with poem writer. Patient reports overall she is feeling better but continues to feel a little anxiety. She is particularly anxious about her living situation at home and is waiting to speak to her outpatient therapist who is helping her with her housing application so that she may move out of her home. At this time patient denies any suicidal or homicidal ideations, intent or plan. Patient denies any auditory, visual hallucinations and denies any paranoia or delusions. Patient denies any side effects from the medications and has been compliant with meds. Mental Status Exam: General Appearance: Patient appears to be stated age is alert, directable, and cooperative Behavior: Patient is calmly lying down without any agitated behavior. Speech: Patient's speech is fluent and nonpressured. Mood/Affect: Mood is improving mildly, "anxious," affect is congruent, nervous and constricted. Suicidality/Homicidality: Patient denies having any suicidal or homicidal ideation intent or plan. Perceptions: Patient denies any visual hallucinations and denies any auditory hallucinations Though content/process: There is no evidence of any delusional thought content and thought process is linear and goal-directed. Memory and concentration: AOX3, grossly intact for the purposes of this session Judgment and insight: Improving mildly Assessment Major depressive disorder, recurrent, severe, without psychotic features Posttraumatic stress disorder Alcohol use disorder Borderline personality disorder Plan: -Patient continues to meet criteria for inpatient psychiatric admission for symptom stabilization and safety. Patient has signed adult voluntary form and medication consent and was placed in patient's chart. -Medications: Continue Trileptal 450 mg by mouth every morning, 600 mg by mouth daily at bedtime for mood stabilization/impulsivity Continue Trintellix 20 mg by mouth daily for depression/anxiety/PTSD Continue naltrexone 50 mg by mouth daily for alcohol use disorder Decrease Librium to 20 mg three times daily for alcohol withdrawals with plans to continue to taper off medication over the next 2-3 days. -When necessary Ativan and Geodon for agitation/aggression. -NRT - nicotine patch -SW on board for discharge planning. Encouraged the patient to participate in milieu. []
[2020-07-01 10:55] LABS: Glucose,Whole Blood 120 mg/dL (75-99)
[2020-07-01 11:39] LABS: ALT 32 U/L (4-34); AST 40 U/L (14-36); African American GFR (CKD) >90 (>60 ml/min/1.73 sqM); Albumin 4.4 g/dL (3.5-5.0); Alkaline Phosphatase 130 U/L (38-126); Anion Gap 7 mmol/L; Blood Urea Nitrogen 6 mg/dL (7-17); Calcium 9.7 mg/dL (8.4-10.2); Carbon Dioxide 28 mmol/L (22-30); Chloride 101 mmol/L (98-107); Glucose 115 mg/dL (74-99); Non-African American GFR(CKD) >90 (>60 ml/min/1.73 sqM); Potassium 3.7 mmol/L (3.5-5.1); Sodium 136 mmol/L (137-145); Total Bilirubin 0.3 mg/dL (0.2-1.3); Total Protein 7.8 g/dL (6.3-8.2)
[2020-07-01 12:06] VITALS: BP 137/78; PULSE 80; RESP 16
--- NOTE | 2020-07-02 10:33 | CDI ---
Documentation Clarification Form Date: 07/02/20 From: Amina Champion CCS Phone: If you have a question about this query, please contact Rosalind Jackman Supervisor [employer] at [phone] between 8am and 5pm. Admit Date: 06/26/20 Discharge Date:07/01/20 Patient Name: Duyen Leija Visit Number: [id number] ATTENTION: The Clinical Documentation Specialists (CDI) and [facility] Coding Staff appreciate your assistance in clarifying documentation. Please respond to the clarification below the line at the bottom and electronically sign. The CDI & [facility] Coding staff will review the response and follow-up if needed. Please note: Queries are made part of the Legal Health Record. If you have any questions, please contact the author of this message via ITS. Dear Dr. Adame, The patient was transferred to medical floor per Nursing Notes 07/01. Nursing Notes: Pt laying on floor by desk. Pt not responsive. A Team called. Patient to medical floor for observation for syncope with telemetry. History/Risk Factors: Major depression, GERD, Cocaine abuse, Alcohol dependence, Hx Suicide, PTSD Clinical Indicators: Unresponsiveness Lab findings: Glucose 120 Treatment:Transfer to med floor In your professional opinion, can you please clarify the diagnosis for which the patient was transferred to medical floor? Syncope Other, please specify Unable to determine MTDD
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
== END 2020-07-01 12:00 | disposition short-term general hospital (02) | DRG 885 ==
LOC: EC 02:47 → 3MHU 05:57
PROVIDERS: ADMIT Psychiatry & Neurology Psychiatry; ATTEND Psychiatry & Neurology Psychiatry
DX: F33.2 Major depressive disorder, recurrent severe without psychotic features (principal); R45.851 Suicidal ideations; F10.230 Alcohol dependence with withdrawal, uncomplicated; F14.10 Cocaine abuse, uncomplicated; F60.3 Borderline personality disorder; K21.9 Gastro-esophageal reflux disease without esophagitis; R45.87 Impulsiveness; F43.10 Post-traumatic stress disorder, unspecified; F41.0 Panic disorder [episodic paroxysmal anxiety]; Z91.5 Personal history of self-harm; N81.6 Rectocele; R55 Syncope and collapse; Z79.82 Long term (current) use of aspirin; Z79.899 Other long term (current) drug therapy; Z90.49 Acquired absence of other specified parts of digestive tract; Z98.890 Other specified postprocedural states; Z90.711 Acquired absence of uterus with remaining cervical stump; Z98.82 Breast implant status; Z62.810 Personal history of physical and sexual abuse in childhood; Z88.0 Allergy status to penicillin; Z88.2 Allergy status to sulfonamides; Z88.8 Allergy status to other drugs, medicaments and biological substances; Z81.8 Family history of other mental and behavioral disorders
CPT/HCPCS: 80048; 80053; 80061; 80306; 82075; 83036; 83735; 84443; 85025; 99285

== ENCOUNTER 2020-07-01 11:21 | Observation (INO) | payer OTHER ==
[2020-07-01] MEDS ORDERED: NALOXONE 0.4 MG/ML 1 ML VIAL IV PRN (14:22)
[2020-07-01 14:52] LABS: Basophils % (A) 0 %; Eosinophils # (A) 0.2 k/uL (0-0.7); Eosinophils % (A) 2 %; HCT 43.1 % (34.0-46.0); HGB 14.4 gm/dL (11.4-16.0); Lymphocytes # (A) 1.7 k/uL (1.0-4.8); Lymphocytes % (A) 20 %; MCH 33.6 pg (25.0-35.0); MCHC 33.3 g/dL (31.0-37.0); MCV 100.7 fL (80.0-100.0); Mean Platelet Volume 6.6; Monocytes # (A) 0.5 k/uL (0-1.0); Monocytes % (A) 6 %; Neutrophils % (A) 70 %; Platelet Count 250 k/uL (150-450); RBC 4.28 m/uL (3.80-5.40); RDW 13.4 % (11.5-15.5); WBC 8.6 k/uL (3.8-10.6)
[2020-07-01 14:57] LABS: African American GFR (CKD) >90 (>60 ml/min/1.73 sqM); Anion Gap 7 mmol/L; Blood Urea Nitrogen 6 mg/dL (7-17); Calcium 9.3 mg/dL (8.4-10.2); Carbon Dioxide 28 mmol/L (22-30); Chloride 101 mmol/L (98-107); Creatine Kinase 64 U/L (30-135); Glucose 106 mg/dL (74-99); Magnesium 1.9 mg/dL (1.6-2.3); Non-African American GFR(CKD) >90 (>60 ml/min/1.73 sqM); Potassium 3.7 mmol/L (3.5-5.1); Sodium 136 mmol/L (137-145)
[2020-07-01] MEDS: ENOXAPARIN 40 MG/0.4 ML SYRINGE SQ SCH (15:24)
[2020-07-01] MEDS: ACETAMINOPHEN TAB 325 MG TAB PO PRN (15:51)
--- NOTE | 2020-07-01 16:08 | P.HPIM ---
History of Present Illness H&P Date: 07/01/20 Chief Complaint: CC: syncope Patient is a 50-year-old female with past medical history of alcohol abuse, depression and anxiety who was transferred from the psych unit for an episode of syncope. Patient was in the psych unit getting treatment for major depression. Patient states that for the last 3 days she has been feeling dizzy and also having unsteady gait. I spoke with the psych unit nurse who was present when the patient passed out who said that there was no tonic-clonic like activity and patient had no tongue biting or urinary incontinence. Patient's vital signs were stable and her glucose was 120 when she passed out. Patient reports that she's been having on and off chest pain as well that is sharp and substernal. She believes that it may be due to her breast implant that ruptured. Patient states that the chest pain is also reproducible with palpation. On telemetry patient is in sinus rhythm. Patient states that while she was in the psych unit she was alternating between Librium and Ativan. Patient currently is upset because she has not gotten any Ativan or Librium since 9 AM. She states that she is in withdrawal. However patient is not tremulous or diaphoretic. Review of Systems 10 ROS reviewed and are negative except as noted in HPI Past Medical History Past Medical History: No Reported History Additional Past Medical History / Comment(s): Increased heart rate, hypotension, errythema on upper lip and around mouth. Patient was told its a skin reaction to stress. currentlyl had rectocele. kidney stone History of Any Multi-Drug Resistant Organisms: None Reported Past Surgical History: Breast Surgery, Cholecystectomy Additional Past Surgical History / Comment(s): Partial hysterectomy, bladder suspension, umbilical hernia repair, breast implants, colonoscopy, endoscopy. Additional Past Anesthesia/Blood Transfusion Reaction / Comment(s): Patient reports having a surgery where she had nausea and vomiting from anesthesia. No previous blood transfusions. Past Psychological History: Anxiety, Depression, Panic Disorder, PTSD Additional Psychological History / Comment(s): Borderline personality disorder. History of 20 inpatient psychiatric admissions. Smoking Status: Never smoker Past Alcohol Use History: None Reported Past Drug Use History: None Reported, Cocaine, Prescription Drug Abuse Additional Drug Use History / Comment(s): Vicodin. 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 Medications and Allergies Home Medications Medication Instructions Recorded Confirmed Type Multivitamins, Thera [Multivitamin 1 tab PO DAILY 10/08/20 10/13/20 History (formulary)] OXcarbazepine [Trileptal] 600 mg PO HS 06/26/20 07/01/20 History Soy Isofla/Blk Cohosh/Mag Bark 155 mg PO DAILY 06/26/20 07/01/20 History [Estroven 155 mg Capsule] Vortioxetine Hydrobromide 20 mg PO HS 06/26/20 07/01/20 History [Trintellix] diphenhydrAMINE [Benadryl] 50 mg PO HS 06/26/20 07/01/20 History Allergies Allergy/AdvReac Type Severity Reaction Status Date / Time hydroxyzine HCl Allergy Intermediate Rash/Hives Verified 07/01/20 14:18 [From Vistaril] hydroxyzine pamoate Allergy Intermediate Rash/Hives Verified 07/01/20 14:18 [From Vistaril] metronidazole [From Flagyl] Allergy Unknown Verified 07/01/20 14:18 Penicillins Allergy Unknown Verified 07/01/20 14:18 Sulfa (Sulfonamide Allergy Unknown Verified 07/01/20 14:18 Antibiotics) Physical Exam Osteopathic Statement: *. No significant issues noted on an osteopathic structural exam other than those noted in the History and Physical/Consult. Vitals: Vital Signs Temp Pulse Resp BP Pulse Ox 07/01/20 14:55 97.6 F 74 16 117/72 99 07/01/20 12:20 97.3 F L 76 129/84 100 Intake and Output 07/01/20 07/01/20 07/01/20 06:59 14:59 22:59 Other: Voiding Method Toilet Weight 63.503 kg General: [Alert and oriented, well nourished, no acute distress]. Eye: [PERRL, EOMI, normal conjunctiva]. HENT: [Normocephalic, clear tympanic membranes, normal hearing, moist oral mucosa, no scleral icterus, no sinus tenderness]. Neck: [Supple, non-tender, no carotid bruits, no JVD, no lymphadenopathy]. Lungs: [Clear to auscultation and percussion, non-labored respiration, tenderness to palpate in the substernal area]. Heart: [Normal rate, regular rhythm, no murmur, gallop or edema]. Abdomen: [Soft, non-tender, non-distended, normal bowel sounds, no masses]. Musculoskeletal: [Normal range of motion and strength, no tenderness or swelling]. Skin: [Skin is warm, dry and pink, no rashes or lesions]. Neurologic: [Awake, alert, and oriented X3, CN II-XII intact]. Psychiatric: [Cooperative, appropriate mood and affect]. Results CBC & Chem 7: 07/01/20 14:29 07/01/20 14:29 Labs: Abnormal Lab Results - Last 24 Hours (Table) 07/01/20 07/01/20 07/01/20 Range/Units 14:29 14:29 14:29 MCV 100.7 H (80.0-100.0) fL Sodium 136 L (137-145) mmol/L BUN 6 L (7-17) mg/dL Glucose 106 H (74-99) mg/dL Plasma Lactic Acid Damon 0.6 L (0.7-2.0) mmol/L Thrombosis Risk Factor Assmnt - Choose All That Apply Each Factor Represents 1 point: Age 41-60 years Thrombosis Risk Factor Assessment Total Risk Factor Score: 1 Thrombosis Risk Factor Assessment Level: Low Risk Assessment and Plan Assessment: #Syncope likely due to sedation medication: Will hold her a.m. dose of Trileptal. Resume her p.m. dose at 600 mg. I will decrease her Librium to 10 mg 3 times a day. Will avoid benzodiazepine. Unlikely to be seizure as patient had no tonic-clonic activity, urinary incontinence or tongue bite. In addition her lactic acid and CK levels were within normal limits. We'll rule out cardiac etiology. Check echocardiogram. Trend troponin 3. Monitor on library monitor. Consult cardiology as patient may benefit from holter monitor. Check EKG. Check CT head #Atypical chest pain likely musculoskeletal since the pain is reproducible. Will start ASA. Management as above. #Major depression with suicide idealization: Suicide precautions. Consult psych. Further adjustments to her medication to avoid sedation will be made by psychiatry #Anxiety: Resume Trintellix #Alcohol abuse/withdrawal: We will continue to titrate patient of Librium. Hold CIWA protocol as patient does not currently exhibit signs of withdrawal. Currently unable to discuss CODE STATUS with the patient as she has thoughts of suicide Patient does not have a DPOA but would like her son to make decisions for her if she lacks capacity. CODE STATUS:full code DVT prophylaxis: Lovenox Anticipated length of stay < than [address]: home A total of 75 minutes was spent on the care of this complex patient more than 50% of the time was spent in counseling and care coordination.
--- NOTE | 2020-07-01 16:40 | CT ---
EXAMINATION TYPE: CT brain wo con DATE OF EXAM: 07/01/2020 HISTORY: Fall with headache and dizziness. CT DLP: 1113.4 mGycm. Automated Exposure Control for Dose Reduction was Utilized. TECHNIQUE: CT scan of the head is performed without contrast. COMPARISON: MRI brain 10/04/2014. FINDINGS: There is no acute intracranial hemorrhage, midline shift, or mass effect identified. Brain parenchyma appears normal. The ventricles, sulci, and cisterns are normal in size and configuration. No extra-axial fluid collection. Bones and extracranial soft tissues are intact. The globes are gross ly symmetric. Visualized sinuses and mastoid air cells are clear. IMPRESSION: No acute intracranial hemorrhage, midline shift, or mass effect.
[2020-07-01] MEDS: ASPIRIN 81 MG PO SCH (16:57)
[2020-07-01] MEDS ORDERED: VORTIOXETINE HYDROBROMIDE 20 MG TABLET PO SCH (21:00)
[2020-07-01] MEDS ORDERED: OXcarbazepine 300 MG TAB PO SCH (21:00)
[2020-07-02] MEDS: ACETAMINOPHEN TAB 325 MG TAB PO PRN (00:15)
[2020-07-02 05:34] VITALS: RESP 18; TEMP 97.8
[2020-07-02] MEDS ORDERED: NALTREXONE HCL 50 MG TAB PO SCH (09:00)
[2020-07-02] MEDS ORDERED: MULTIVITAMINS, THERA 1 EACH TAB PO SCH (09:00)
[2020-07-02] MEDS ORDERED: OXcarbazepine 150 MG TAB PO SCH (09:00)
[2020-07-02] MEDS: ASPIRIN 81 MG PO SCH (09:45)
[2020-07-02] MEDS: ENOXAPARIN 40 MG/0.4 ML SYRINGE SQ SCH (09:47)
--- NOTE | 2020-07-02 09:51 | ECHOF ---
Referral Reason:syncope MEASUREMENTS -------- HEIGHT: 160.0 cm WEIGHT: 63.5 kg BP: RVIDd: 2.1 cm (< 3.3) IVSd: 0.7 cm (0.6 - 1.1) LVIDd: 4.3 cm (3.9 - 5.3) LVPWd: 1.1 cm (0.6 - 1.1) IVSs: 1.1 cm LVIDs: 3.1 cm LVPWs: 1.2 cm MV EXCURSION: 16.396 mm (> 18.000) MV EF SLOPE: 80 mm/s (70 - 150) EPSS: 0.3 cm MV E Dario: 0.57 m/s MV DecT: 207 ms MV A Dario: 0.64 m/s MV E/A Ratio: 0.88 RAP: 5.00 mmHg RVSP: 20.80 mmHg FINDINGS -------- Sinus rhythm. This was a technically adequate study. Pt. Has Breast inplants LV size, wall thickness and systolic function are normal, with an EF greater than 55%. The left radah tricular size is normal. The right ventricle is normal in size. The left atrial size is normal. The right atrial size is normal. The aortic valve is trileaflet, and appears structurally normal. No aortic stenosis or regurgitation. The mitral valve is normal. Mild mitral regurgitation is present. Mild tricuspid regurgitation present. Right ventricular systolic pressure is normal at < 35 mmHg. The pulmonic valve was not well visualized. There is no pulmonic regurgitation present. The aortic root size is normal. There is no pericardial effusion. CONCLUSIONS -------- 1. Pt. Has Breast inplants 2. LV size, wall thickness and systolic function are normal, with an EF greater than 55%. 3. The left ventricular size is normal. 4. The left atrial size is normal. 5. The aortic valve is trileaflet, and appears structurally normal. No aortic stenosis or regurgitati on. 6. Mild mitral regurgitation is present. 7. Mild tricuspid regurgitation present. 8. There is no pericardial effusion. RN GYNECOLOGY: Lorena Rodriguez RD
--- NOTE | 2020-07-02 10:58 | P.CRDCN ---
History of Present Illness Consult date: 07/02/20 Consult reason: sycope Chief complaint: Syncope History of present illness: This is a 50-year-old female with past medical history of alcohol abuse, depression, anxiety, PTSD, who was initially admitted to the psych unit after having suicidal ideation with intention to jump off a bridge. While in the psychiatric unit patient had a syncopal episode and was found on the floor. When the nurse found the patient, according to the documentation her vital signs were stable and her glucose was 120. Patient has also been complaining of intermittent chest discomfort which she describes as sharp in nature. Worsened significantly and reproducible on palpation of the chest wall. EKG was reviewed which shows normal sinus rhythm with no acute changes. Echocardiogram with Doppler study revealed an ejection fraction of greater than 55%. Blood pressure 110/76 with a heart rate in the 80s, 98% on room air. White blood cell count 8.6, hemoglobin 14.4, platelet count 250. Sodium 136, potassium 3.7, BUN 6, cr eatinine 0.6, magnesium 1.9. Troponins are negative 3. Past Medical History Past Medical History: No Reported History Additional Past Medical History / Comment(s): Increased heart rate, hypotension, errythema on upper lip and around mouth. Patient was told its a skin reaction to stress. currentlyl had rectocele. kidney stone History of Any Multi-Drug Resistant Organisms: None Reported Past Surgical History: Breast Surgery, Cholecystectomy Additional Past Surgical History / Comment(s): Partial hysterectomy, bladder suspension, umbilical hernia repair, breast implants, colonoscopy, endoscopy. Additional Past Anesthesia/Blood Transfusion Reaction / Comment(s): Patient reports having a surgery where she had nausea and vomiting from anesthesia. No previous blood transfusions. Past Psychological History: Anxiety, Depression, Panic Disorder, PTSD Additional Psychological History / Comment(s): Borderline personality disorder. History of 20 inpatient psychiatric admissions. Smoking Status: Never smoker Past Alcohol Use History: None Reported Past Drug Use History: None Reported, Cocaine, Prescription Drug Abuse Additional Drug Use History / Comment(s): Vicodin. 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 Medications and Allergies Home Medications Medication Instructions Recorded Confirmed Type Multivitamins, Thera [Multivitamin 1 tab PO DAILY 06/26/20 07/01/20 History (formulary)] OXcarbazepine [Trileptal] 600 mg PO HS 06/26/20 07/01/20 History Soy Isofla/Blk Cohosh/Mag Bark 155 mg PO DAILY 06/26/20 07/01/20 History [Estroven 155 mg Capsule] Vortioxetine Hydrobromide 20 mg PO HS 06/26/20 07/01/20 History [Trintellix] diphenhydrAMINE [Benadryl] 50 mg PO HS 06/26/20 07/01/20 History Allergies Allergy/AdvReac Type Severity Reaction Status Date / Time hydroxyzine HCl Allergy Intermediate Rash/Hives Verified 07/01/20 14:18 [From Vistaril] hydroxyzine pamoate Allergy Intermediate Rash/Hives Verified 07/01/20 14:18 [From Vistaril] metronidazole [From Flagyl] Allergy Unknown Verified 07/01/20 14:18 Penicillins Allergy Unknown Verified 07/01/20 14:18 Sulfa (Sulfonamide Allergy Unknown Verified 07/01/20 14:18 Antibiotics) Physical Exam Vitals: Vital Signs Temp Pulse Resp BP Pulse Ox 07/02/20 05:00 97.8 F 88 18 110/76 98 07/01/20 20:15 97.6 F 88 16 114/74 98 07/01/20 14:55 97.6 F 74 16 117/72 99 07/01/20 12:20 97.3 F L 76 129/84 100 Intake and Output 07/01/20 07/02/20 07/02/20 22:59 06:59 14:59 Intake Total 590 590 Balance 590 590 Intake: Oral 590 590 Other: Voiding Method Toilet Toilet Toilet # Voids 2 3 Assessment and plan #1 syncope, rule out cardiac causes, likely secondary to EtOH, sedation. #2 atypical chest pain, musculoskeletal in nature, reproducible. Troponins are negative 3, EKG shows normal sinus rhythm with no acute changes. #3 major depression with suicidal ideation #4 alcohol abuse #5 anxiety #6 PTSD Plan We will obtain an echocardiogram with Doppler study, assess orthostatic heart rate and blood pressure. Monitor for any significant arrhythmias. Further recommendations to follow. DNP note has been reviewed, I agree with a documented findings and plan of care. Patient was seen and examined. Results 07/01/20 14:29 07/01/20 14:29 Cardiac Enzymes 07/01/20 07/01/20 07/01/20 Range/Units 14:29 17:36 20:50 Troponin I <0.012 <0.012 <0.012 (0.000-0.034) ng/mL CBC 07/01/20 Range/Units 14:29 WBC 8.6 (3.8-10.6) k/uL RBC 4.28 (3.80-5.40) m/uL Hgb 14.4 (11.4-16.0) gm/dL Hct 43.1 (34.0-46.0) % Plt Count 250 (150-450) k/uL Comprehensive Metabolic Panel 07/01/20 Range/Units 14:29 Sodium 136 L (137-145) mmol/L Potassium 3.7 (3.5-5.1) mmol/L Chloride 101 (98-107) mmol/L Carbon Dioxide 28 (22-30) mmol/L BUN 6 L (7-17) mg/dL Creatinine 0.61 (0.52-1.04) mg/dL Glucose 106 H (74-99) mg/dL Calcium 9.3 (8.4-10.2) mg/dL Current Medications Generic Name Dose Route Start Last Admin Trade Name Freq PRN Reason Stop Dose Admin Acetaminophen 650 mg 07/01/20 14:22 07/02/20 00:15 Acetaminophen Tab 325 Mg Tab PO 650 mg Q6HR PRN Administration Mild Pain or Fever > 100.5 Aspirin 81 mg 07/01/20 16:15 07/02/20 09:45 Aspirin 81 Mg PO 81 mg DAILY EMA Administration Chlordiazepoxide HCl 10 mg 07/01/20 16:00 07/02/20 09:46 Chlordiazepoxide 10 Mg Cap PO 10 mg TID EMA Administration Enoxaparin Sodium 40 mg 07/01/20 14:30 07/02/20 09:47 Enoxaparin 40 Mg/0.4 Ml Syringe SQ 40 mg DAILY@1400 EMA Administration Multivitamins 1 each 07/02/20 09:00 07/02/20 09:46 Multivitamins, Thera 1 Each Tab PO 1 each DAILY EMA Administration Naloxone HCl 0.2 mg 07/01/20 14:22 Naloxone 0.4 Mg/Ml 1 Ml Vial IV Q2M PRN Opioid Reversal Naltrexone HCl 50 mg 07/02/20 09:00 10/14/20 10:05 Naltrexone Hcl 50 Mg Tab PO Not Given DAILY EMA Oxcarbazepine 600 mg 07/01/20 21:00 07/01/20 21:15 Oxcarbazepine 300 Mg Tab PO 600 mg HS EMA Administration Vortioxetine 20 mg 07/01/20 21:00 07/01/20 21:15 Vortioxetine Hydrobromide 20 Mg Tablet PO 20 mg HS EMA Administration Intake and Output 07/01/20 07/02/20 07/02/20 22:59 06:59 14:59 Intake Total 590 590 Balance 590 590 Intake: Oral 590 590 Other: Voiding Method Toilet Toilet Toilet # Voids 2 3 07/01/20 14:29 07/01/20 14:29
--- NOTE | 2020-07-02 13:07 | P.DS ---
Providers Date of admission: 07/01/20 12:35 Attending physician: Noemí Samuels DO Consults: 07/01/20 15:48 Consult Physician Routine Consulting Provider: Anthony Adame Consult Reason/Comments: suicidal thoughts Do you want consulting provider notified?: Yes 07/01/20 16:02 Consult Physician Routine Consulting Provider: Ro Muñiz Consult Reason/Comments: syncope Do you want consulting provider notified?: Yes Primary care physician: Stated None Hospital Course: Discharge Diagnosis: Syncope likely due to sedation medication Atypical chest pain likely musculoskeletal Major depression with suicide idealization Anxiety Alcohol abuse/withdrawal Hospital Course: Patient is a 50-year-old female with past medical history of alcohol abuse, depression and anxiety who was transferred from the psych unit for an episode of syncope. Patient was in the psych unit getting treatment for major depression. Patient states that for the last 3 days she has been feeling dizzy and also having unsteady gait. I spoke with the psych unit nurse who was present when the patient when she passed out who said that there was no tonic-clonic like activity and patient had no tongue biting or urinary incontinence. Patient's vital signs were stable and her glucose was 120 when she passed out. Patient reports that she's been having on and off chest pain as well that is sharp and substernal. She believes that it may be due to her breast implant that ruptured. Patient states that the chest pain is also reproducible with palpation. On telemetry patient is in sinus rhythm. Patient states that while she was in the psych unit she was alternating between Librium and Ativan. Patient had cardiac workup done. Her troponins were negative 3. EKG showed sinus rhythm with no ST changes. Patient's echocardiogram showed EF of 55%. Patient's CT head was also negative for any acute process. Patient was labs and vital signs are unremarkable. She had no more episodes of syncope during this hospitalization. Patient had no arrhythmias on candy separator enrobing. She is deemed stable for discharge back to the psych unit. Patient can follow with cardiology once discharged from psych unit for possible Holter monitor. We'll need to avoid benzodiazepines. We will also need to quickly titrate off Librium. Hospitalization patient had no signs of alcohol withdrawal. 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 Patient Condition at Discharge: Good Plan - Discharge Summary Discharge Rx Participant: No New Discharge Prescriptions: New Aspirin 81 mg PO DAILY chew chlordiazePOXIDE HCl [Librium] 10 mg PO TID cap Naltrexone HCl [Revia] 50 mg PO DAILY tab Continue Vortioxetine Hydrobromide [Trintellix] 20 mg PO HS Soy Isofla/Blk Cohosh/Mag Bark [Estroven 155 mg Capsule] 155 mg PO DAILY OXcarbazepine [Trileptal] 600 mg PO HS Multivitamins, Thera [Multivitamin (formulary)] 1 tab PO DAILY Discontinued diphenhydrAMINE [Benadryl] 50 mg PO HS Discharge Medication List Multivitamins, Thera [Multivitamin (formulary)] 1 tab PO DAILY 06/26/20 [History] OXcarbazepine [Trileptal] 600 mg PO HS 06/26/20 [History] Soy Isofla/Blk Cohosh/Mag Bark [Estroven 155 mg Capsule] 155 mg PO DAILY 06/26/20 [History] Vortioxetine Hydrobromide [Trintellix] 20 mg PO HS 06/26/20 [History] Aspirin 81 mg PO DAILY chew 07/02/20 [Rx] Naltrexone HCl [Revia] 50 mg PO DAILY tab 07/02/20 [Rx] chlordiazePOXIDE HCl [Librium] 10 mg PO TID cap 07/02/20 [Rx] Follow up Appointment(s)/Referral(s): Ro Muñiz MD [STAFF PHYSICIAN] - 4 Weeks Discharge Disposition: TRANSFER TO PSYCH HOSP/UNIT
--- NOTE | 2020-07-02 13:42 | P.CN ---
Psychiatric Consult - . Consult date: 07/02/20 Consult:: IDENTIFYING DATA: This patient is a 50-year-old female with a past medical history of alcohol abuse, depression, and anxiety who was transferred from the psychiatric unit for an episode of syncope. HISTORY OF PRESENT ILLNESS: The patient presented to the hospital on 06/26/2020 and was being managed for major depression with suicidal ideation as well as heavy alcohol use. During psychiatric admission, the patient was placed on Ativan and Librium for alcohol withdrawal and continued on her home medications of Trileptal and Trintellix. Patient's trileptal was gradually titrated to a morning dose of 450 mg. On the morning of 07/01/2020, patient experienced a syncopal episode in front of the nurses' station. Patient expresses she has been feeling increasingly dizzy and light-headed. Lab work revealed mild hyponatremia at 136. Vitals were stable. Blood sugar was within normal limits. Currently the patient is expressing no suicidal or homicidal ideation or intention. She is being tapered off her benzodiazepines currently. She is not reporting any Auditory or Visual hallucinations. She denies any paranoia. She is wishing to return to the psychiatric unit once medically stable. PAST PSYCHIATRIC HISTORY: Patient has been previously diagnosed with depression, PTSD, anxiety, and borderline personality disorder. History of multiple medication trials including Prozac, cymbalta, zoloft, doxepin, prazosin, abilify, and zyprexa. She has had multiple psychiatric hospitalization with the last being this past august on 3M. She is currently open with [facility]. She has 7 prior attempts at suicide. PAST MEDICAL HISTORY: GERD. ALLERGIES: as per EMR. CHEMICAL DEPENDENCY HISTORY: Prior to the admission on 06/26/2020, patient reported daily alcohol use up to one big box of wine per day. History of opiate use 10-11 years ago. Denies marijuana, tobacco, or illicit drug use. FAMILY PSYCHIATRIC/SUBSTANCE USE HISTORY: Mother has depression. Cousin comm itted suicide. SOCIAL HISTORY: Patient was born and raised in [facility] and raised in [place]. Completed 2 years of college. for 1 year and was when she was 30 years old. 3 sons. Lives with mother, nephew, and one of her sons. She receives social security. MENTAL STATUS EXAM: General Appearance: Patient appears to be stated age is alert, pleasant, and cooperative. Patient appears to have fair hygiene and grooming wearing hospital gown with fair eye contact. Behavior: Patient is calmly lying in bed without any agitated behavior. Speech: Patient's speech is fluent and nonpressured. Low in volume. Mood/Affect: Patient reports their mood is "embarassed", affect is anxious Suicidality/Homicidality: Patient denies having any suicidal or homicidal ideation intent or plan. Perceptions: Patient denies any visual hallucinations and denies any auditory hallucinations Though content/process: There is no evidence of any delusional thought content and thought process is linear and goal-directed. Memory and concentration: AOX3, grossly intact for the purposes of this session. Can spell "WORLD" backwards Judgment and insight: poor IMPRESSIONS: Major depressive disorder, recurrent, severe, without psychotic features Posttraumatic stress disorder Alcohol use disorder Borderline personality disorder PLAN: -At this time patient DOES meet criteria for inpatient psychiatric admission. 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 Continue Trintellix. Agree with taper of benzodiazepines. -Continue 1:1 sitter for safety -Cannot leave AMA at this time. Patient will need a petition and certification if attempting to leave AMA. -Will continue to follow along -When medically stable, patient is eligible for transfer to a psych bed when available. 07/02/20 13:31
[2020-07-02 14:00] VITALS: BP 112/63; PULSE 86
== END 2020-07-02 19:42 ==
LOC: 1SOBS 12:35 → 6NMEDSUR 17:24
PROVIDERS: ADMIT Internal Medicine; ATTEND Internal Medicine
DX: F10.239 Alcohol dependence with withdrawal, unspecified (principal); R55 Syncope and collapse; R45.851 Suicidal ideations; R07.89 Other chest pain; I95.9 Hypotension, unspecified; F41.9 Anxiety disorder, unspecified; F32.9 Major depressive disorder, single episode, unspecified; L53.9 Erythematous condition, unspecified; F14.11 Cocaine abuse, in remission; F11.21 Opioid dependence, in remission; F43.10 Post-traumatic stress disorder, unspecified; N20.0 Calculus of kidney; Z98.82 Breast implant status; N81.6 Rectocele; Z90.49 Acquired absence of other specified parts of digestive tract; Z90.710 Acquired absence of both cervix and uterus; Z98.890 Other specified postprocedural states; F60.3 Borderline personality disorder; Z79.899 Other long term (current) drug therapy; Z88.0 Allergy status to penicillin; Z88.2 Allergy status to sulfonamides; Z88.8 Allergy status to other drugs, medicaments and biological substances
CPT/HCPCS: 96372 ×2; 93005; 93306; 36410; 76937; 80048; 84445; 82550; 83605; 83735; 84484; 85025; 70450; G0378 ×3; G0379; J1650 ×2

== ENCOUNTER 2020-07-02 19:00 | Inpatient (IN) | payer MEDICAID, OTHER ==
[2020-07-02] MEDS ORDERED: ACETAMINOPHEN TAB 325 MG TAB PO PRN (19:06)
[2020-07-02] MEDS ORDERED: ZIPRASIDONE 20 MG VIAL IM PRN (19:06)
[2020-07-02] MEDS ORDERED: MAG HYDROX/AL HYDROX/SIMETH 30 ML CUP PO PRN (19:06)
[2020-07-02] MEDS: OXcarbazepine 300 MG TAB PO SCH (20:18)
[2020-07-02] MEDS: MELATONIN 5 MG TABLET PO SCH (20:45)
--- NOTE | 2020-07-03 00:56 | P.CONS ---
History of Present Illness - Reason for Consult Consult date: 07/03/20 - History of Present Illness The patient is a 50-year-old female with a PMH of alcohol abuse, major depression, anxiety, and PTSD who was initially admitted to the mental health unit due to depression and suicidal ideation. The patient was subsequently transferred to the medical unit after an episode of syncope. The patient had undergone an extensive evaluation with an echocardiogram and brain CT which were both unremarkable. Cardiology was consulted who recommended that the syncopal episode was likely secondary to sedation. EKG had revealed normal sinus rhythm with no acute changes. Troponin was negative 3. Evaluation was also unremarkable. The patient was subsequently cleared and transferred to the psychiatric unit where she was evaluated. He reports feeling well and denied any active complaints. She denied chest pain, shortness of breath, palpitations, nausea, vomiting, or dizziness. Also denied fever, chills, abdominal pain, diarrhea, cough. Review of Systems Pertinent positives and negatives as discussed in HPI, a complete review of systems was performed and all other systems are negative. Past Medical History Past Medical History: No Reported History Additional Past Medical History / Comment(s): Increased heart rate, hypotension, errythema on upper lip and around mouth. Patient was told its a skin reaction to stress. currentlyl had rectocele. kidney stone History of Any Multi-Drug Resistant Organisms: None Reported Past Surgical History: Breast Surgery, Cholecystectomy Additional Past Surgical History / Comment(s): Partial hysterectomy, bladder suspension, umbilical hernia repair, breast implants, colonoscopy, endoscopy. Additional Past Anesthesia/Blood Transfusion Reaction / Comm: Patient reports having a surgery where she had nausea and vomiting from anesthesia. No previous blood transfusions. Past Psychological History: Anxiety, Depression, Panic Disorder, PTSD Additional Psychological History / Comment(s): Borderline personality disorder. History of 20 inpatient psychiatric admissions. Smoking Status: Never smoker Past Alcohol Use History: None Reported Past Drug Use History: None Reported, Cocaine, Prescription Drug Abuse Additional Drug Use History / Comment(s): Vicodin. 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 Medications and Allergies Home Medications Medication Instructions Recorded Confirmed Type Multivitamins, Thera [Multivitamin 1 tab PO DAILY 06/26/20 07/02/20 History (formulary)] OXcarbazepine [Trileptal] 600 mg PO HS 06/26/20 07/02/20 History Soy Isofla/Blk Cohosh/Mag Bark 155 mg PO DAILY 06/26/20 07/02/20 History [Estroven 155 mg Capsule] Vortioxetine Hydrobromide 20 mg PO HS 06/26/20 07/02/20 History [Trintellix] Aspirin 81 mg PO DAILY chew 07/02/20 07/02/20 Rx Naltrexone HCl [Revia] 50 mg PO DAILY tab 07/02/20 07/02/20 Rx chlordiazePOXIDE HCl [Librium] 10 mg PO TID cap 07/02/20 07/02/20 Rx Allergies Allergy/AdvReac Type Severity Reaction Status Date / Time hydroxyzine HCl Allergy Intermediate Rash/Hives Verified 07/02/20 19:24 [From Vistaril] hydroxyzine pamoate Allergy Intermediate Rash/Hives Verified 07/02/20 19:24 [From Vistaril] metronidazole [From Flagyl] Allergy Unknown Verified 07/02/20 19:24 Penicillins Allergy Unknown Verified 07/02/20 19:24 Sulfa (Sulfonamide Allergy Unknown Verified 07/02/20 19:24 Antibiotics) Physical Exam Vitals: Vital Signs Temp Pulse Resp BP Pulse Ox 07/02/20 19:59 98.0 F 88 15 113/69 97 Intake and Output 07/02/20 07/02/20 07/03/20 14:59 22:59 06:59 Other: Weight 63.5 kg General: non toxic, no distress, appears at stated age, normal weight Derm: no unusual rashes/lesions no unusual ecchymoses, warm, dry Head: atraumatic, normocephalic, symmetric Eyes: EOMI, no lid lag, anicteric sclera, pupils equal round reactive to light ENT: Nose and ears atraumatic, no thrush, no pharyngeal erythema Neck: No thyromegaly, no cervical lymphadenopathy, trachea midline, supple Mouth: no lip lesion, mucus membranes moist Cardiovascular: S1S2 reg, no murmur, positive posterior tibial pulse bilateral, no edema, capillary refill less than 2 seconds Lungs: CTA bilateral, no rhonchi, no rales , no accessory muscle use Abdominal: soft, nontender to palpation, no guarding, no appreciable organomegaly, normal bowel sounds Ext: no gross muscle atrophy, muscle strength 5 out of 5 in all 4 extremities grossly, no contractures, Neuro: CN II-XI grossly intact, light touch intact all 4 extremities, finger to nose within normal limits, Psych: Alert, oriented, appropriate affect Assessment and Plan Plan: Syncopal episode -Outpatient follow-up with cardiology for possible Holter monitor -Avoid oversedation -Discontinue Librium Alcohol abuse -Patient currently not in withdrawal Depression, PTSD, anxiety -As per psychiatry Thank you for allowing us to participate in the care of this patient. We will follow peripherally. Do not hesitate to contact us with questions. Someone can be reached from the [facility] hospitalist group at all hours of the day at [phone].
[2020-07-03] MEDS: NALTREXONE HCL 50 MG TAB PO SCH (07:44)
[2020-07-03] MEDS: ASPIRIN 81 MG PO SCH (07:44)
[2020-07-03] MEDS: LORazepam 1 MG TAB PO PRN ×2 (07:48→15:42)
[2020-07-03 08:18] LABS: Cholesterol 234 mg/dL (<200); Triglycerides 96 mg/dL (<150)
[2020-07-03 08:27] LABS: LDL Cholesterol,Calculated 99 mg/dL (0-99)
[2020-07-03 08:30] LABS: HDL Cholesterol 116 mg/dL (40-60)
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
[2020-07-03] MEDS: MULTIVITAMINS, THERA 1 EACH TAB PO SCH (12:12)
--- NOTE | 2020-07-03 13:50 | P.PN ---
Progress Note - Text Progress Note Date: 07/03/20 CTSP: Concerns for IV site irritation. Arrived to find patient laying in bed with dressing over left arm. Patient complains of pain in the left arm since IV in the site. Left arm with bruising. No palpable blood vessel, no warmth, no errythema. Ecchymosis over left arm. - no need for further dressings, no signs of infection - once daily temperature checks.
[2020-07-03 18:02] LABS: Hemoglobin A1C 5.4 % (4.0-6.0)
[2020-07-03] MEDS: OXcarbazepine 300 MG TAB PO SCH (21:07)
[2020-07-03] MEDS: MELATONIN 5 MG TABLET PO SCH (21:07)
[2020-07-04] MEDS: LORazepam 1 MG TAB PO PRN ×2 (00:11→08:29)
[2020-07-04 06:14] VITALS: RESP 16; TEMP 97.7
[2020-07-04] MEDS: ASPIRIN 81 MG PO SCH (08:29)
[2020-07-04] MEDS: NALTREXONE HCL 50 MG TAB PO SCH (08:29)
[2020-07-04 08:31] VITALS: BP 116/74; PULSE 118
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
[2020-07-04] MEDS: MULTIVITAMINS, THERA 1 EACH TAB PO SCH (11:30)
== END 2020-07-04 11:54 | disposition home or self-care (01) | DRG 885 ==
LOC: 3MHU 19:00
PROVIDERS: ADMIT Psychiatry & Neurology Psychiatry; ATTEND Psychiatry & Neurology Psychiatry
DX: F33.2 Major depressive disorder, recurrent severe without psychotic features (principal); R45.851 Suicidal ideations; F10.239 Alcohol dependence with withdrawal, unspecified; F43.10 Post-traumatic stress disorder, unspecified; F41.0 Panic disorder [episodic paroxysmal anxiety]; F60.3 Borderline personality disorder; F14.10 Cocaine abuse, uncomplicated; Z62.810 Personal history of physical and sexual abuse in childhood; Z79.82 Long term (current) use of aspirin; Z81.8 Family history of other mental and behavioral disorders; Z87.442 Personal history of urinary calculi; Z90.711 Acquired absence of uterus with remaining cervical stump; Z98.82 Breast implant status; Z90.49 Acquired absence of other specified parts of digestive tract; Z88.0 Allergy status to penicillin; Z88.8 Allergy status to other drugs, medicaments and biological substances
CPT/HCPCS: 80061; 83036

== ENCOUNTER 2021-12-04 10:46 | Emergency (ER) | payer OTHER ==
[2021-12-04 11:04] VITALS: BP 125/86; PULSE 95; RESP 18; TEMP 98
--- NOTE | 2021-12-04 11:45 | ED ---
General Adult HPI - General Chief complaint: Psychiatric Symptoms Stated complaint: Mental Health Eval. Time Seen by Provider: 12/04/21 11:00 Source: patient, EMS, RN notes reviewed, old records reviewed Mode of arrival: EMS Limitations: no limitations - History of Present Illness Initial comments: This a 51-year-old female who presents emergency Department stating she is anxious and has been drinking a lot lately. Patient told the nursing staff that she is suicidal however currently she is denying to me. Patient denies any drug use. Patient denies any chest pain difficulty breathing shortness of breath. Patient denies any abdominal pain patient denies nausea vomiting diarrhea. Patient states she had a glass of wine this morning prior to coming in. - Related Data Home Medications Medication Instructions Recorded Confirmed Soy Isofla/Blk Cohosh/Mag Bark 155 mg PO DAILY 06/26/20 12/04/21 [Estroven 155 mg Capsule] ALPRAZolam [Xanax] 0.25 mg PO TID PRN 12/04/21 12/04/21 Cholecalciferol [Vitamin D3 (125 125 mcg PO DAILY 12/04/21 12/04/21 Mcg = 5000 Iu)] Multivit with Calcium,Iron,Min 1 tab PO DAILY 12/04/21 12/04/21 [Women's Multivitamin] OXcarbazepine [Trileptal] 300 mg PO DAILY 12/04/21 12/04/21 Omeprazole 40 mg PO AC-BRKFST 12/04/21 12/04/21 Vibegron [Gemtesa] 75 mg PO DAILY 12/04/21 12/04/21 Vortioxetine Hydrobromide 20 mg PO DAILY 12/04/21 12/04/21 [Trintellix] cloNIDine HCL [Catapres] 0.1 mg PO TID 12/04/21 12/04/21 cloNIDine HCL [Catapres] 0.2 mg PO HS 12/04/21 12/04/21 Previous Rx's Medication Instructions Recorded Naltrexone HCl [Revia] 50 mg PO DAILY 30 Days tab 07/04/20 OXcarbazepine [Trileptal] 600 mg PO HS 30 Days tab 07/04/20 Allergies Allergy/AdvReac Type Severity Reaction Status Date / Time hydroxyzine HCl Allergy Intermediate Rash/Hives Verified 12/04/21 13:31 [From Vistaril] hydroxyzine pamoate Allergy Intermediate Rash/Hives Verified 12/04/21 13:31 [From Vistaril] acetaminophen Allergy Rash/Hives Verified 12/04/21 13:31 [From Darvocet-N] metronidazole [From Flagyl] Allergy Anaphylaxis Verified 12/04/21 13:31 Penicillins Allergy Rash/Hives/Watery Verified 12/04/21 13:31 eyes/Facial Swelling prochlorperazine Allergy Anaphylaxis/Left Verified 12/04/21 13:31 [From Compazine] jaw contraction propoxyphene Allergy Rash/Hives Verified 12/04/21 13:31 [From Darvocet-N] propranolol [From Inderal LA] Allergy Rash/Hives Verified 12/04/21 13:31 Sulfa (Sulfonamide Allergy Unknown Verified 12/04/21 13:31 Antibiotics) trazodone Allergy Rash/Hives Verified 12/04/21 13:31 lamotrigine [From Lamictal] AdvReac John Verified 12/04/21 13:31 Aleks's Syndrome Review of Systems ROS Statement: Those systems with pertinent positive or pertinent negative responses have been documented in the HPI. ROS Other: All systems not noted in ROS Statement are negative. Past Medical History Past Medical History: No Reported History Additional Past Medical History / Comment(s): Increased heart rate, hypotension, errythema on upper lip and around mouth. Patient was told its a skin reaction to stress. currentlyl had rectocele. kidney stone History of Any Multi-Drug Resistant Organisms: None Reported Past Surgical History: Breast Surgery, Cholecystectomy Additional Past Surgical History / Comment(s): Partial hysterectomy, bladder suspension, umbilical hernia repair, breast implants, colonoscopy, endoscopy. Additional Past Anesthesia/Blood Transfusion Reaction / Comment(s): Patient reports having a surgery where she had nausea and vomiting from anesthesia. No previous blood transfusions. Past Psychological History: Anxiety, Depression, Panic Disorder, PTSD Smoking Status: Never smoker Past Alcohol Use History: None Reported Past Drug Use History: None Reported, Cocaine, Prescription Drug Abuse General Exam - General Exam Comments Initial Comments: GENERAL: Patient is well-developed and well-nourished. Patient is nontoxic and well- hydrated and is in no mild distress. ENT: Neck is soft and supple. No significant lymphadenopathy is noted. Oropharynx is clear. Moist mucous membranes. Neck has full range of motion without eliciting any pain. EYES: The sclera were anicteric and conjunctiva were pink and moist. Extraocular movements were intact and pupils were equal round and reactive to light. Eyelids were unremarkable. PULMONARY: Unlabored respirations. Good breath sounds bilaterally. No audible rales rhonchi or wheezing was noted. CARDIOVASCULAR: There is a regular rate and rhythm without any murmurs gallops or rubs. ABDOMEN: Soft and nontender with normal bowel sounds. SKIN: Skin is clear with no lesions or rashes and otherwise unremarkable. NEUROLOGIC: Patient is alert and oriented x3. Cranial nerves II through XII are grossly i ntact. Motor and sensory are also intact. Normal speech, volume and content. Symmetrical smile. MUSCULOSKELETAL: Normal extremities with adequate strength and full range of motion. No lower extremity swelling or edema. No calf tenderness. LYMPHATICS: No significant lymphadenopathy is noted PSYCHIATRIC: Patient is anxious. Patient denies suicidal or homicidal ideations to me however she did admit to nursing she is suicidal Limitations: no limitations Course Vital Signs 12/04/21 10:53 Temperature 98.0 F Pulse Rate 95 Respiratory 18 Rate Blood Pressure 125/86 O2 Sat by Pulse 96 Oximetry Medical Decision Making - Medical Decision Making EPS evaluated the patient and determined the patient could go home. Safety plan was agreed upon with the patient. Patient did receive 1 mg of Ativan in the emergency department. Patient continued to deny suicidal ideations to myself. - Lab Data Result diagrams: 12/04/21 11:21 12/04/21 11:21 Lab Results 12/04/21 12/04/21 12/04/21 Range/Units 11:21 11:21 11:21 WBC 9.9 (3.8-10.6) k/uL RBC 4.30 (3.80-5.40) m/uL Hgb 14.5 (11.4-16.0) gm/dL Hct 41.4 (34.0-46.0) % MCV 96.4 (80.0-100.0) fL MCH 33.8 (25.0-35.0) pg MCHC 35.1 (31.0-37.0) g/dL RDW 13.0 (11.5-15.5) % Plt Count 269 (150-450) k/uL MPV 7.3 Neutrophils % 63 % Lymphocytes % 24 % Monocytes % 6 % Eosinophils % 3 % Basophils % 1 % Neutrophils # 6.3 (1.3-7.7) k/uL Lymphocytes # 2.4 (1.0-4.8) k/uL Monocytes # 0.6 (0-1.0) k/uL Eosinophils # 0.3 (0-0.7) k/uL Basophils # 0.1 (0-0.2) k/uL Sodium 132 L (137-145) mmol/L Potassium 4.1 (3.5-5.1) mmol/L Chloride 99 (98-107) mmol/L Carbon Dioxide 24 (22-30) mmol/L Anion Gap 9 mmol/L BUN 5 L (7-17) mg/dL Creatinine 0.57 (0.52-1.04) mg/dL Est GFR (CKD-EPI)AfAm >90 (>60 ml/min/1.73 sqM) Est GFR (CKD-EPI)NonAf >90 (>60 ml/min/1.73 sqM) Glucose 96 (74-99) mg/dL Calcium 8.9 (8.4-10.2) mg/dL Magnesium 1.8 (1.6-2.3) mg/dL Total Bilirubin 0.4 (0.2-1.3) mg/dL AST 26 (14-36) U/L ALT 13 (4-34) U/L Alkaline Phosphatase 105 (38-126) U/L Total Protein 7.6 (6.3-8.2) g/dL Albumin 4.4 (3.5-5.0) g/dL Urine Opiates Screen Not Detected (NotDetected) Ur Oxycodone Screen Detected H (NotDetected) Urine Methadone Screen Not Detected (NotDetected) Ur Propoxyphene Screen Not Detected (NotDetected) Ur Barbiturates Screen Not Detected (NotDetected) U Tricyclic Antidepress Not Detected (NotDetected) Ur Phencyclidine Scrn Not Detected (NotDetected) Ur Amphetamines Screen Not Detected (NotDetected) U Methamphetamines Scrn Not Detected (NotDetected) U Benzodiazepines Scrn Not Detected (NotDetected) Urine Cocaine Screen Not Detected (NotDetected) U Marijuana (THC) Screen Not Detected (NotDetected) Disposition Clinical Impression: Alcohol use disorder, Acute anxiety Disposition: HOME SELF-CARE Condition: Good Is patient prescribed a controlled substance at d/c from ED?: No Referrals: Nonstaff,Physician [Primary Care Provider] - 1-2 days Time of Disposition: 14:37
[2021-12-04 12:09] LABS: ALT 13 U/L (4-34); AST 26 U/L (14-36); African American GFR (CKD) >90 (>60 ml/min/1.73 sqM); Albumin 4.4 g/dL (3.5-5.0); Alkaline Phosphatase 105 U/L (38-126); Anion Gap 9 mmol/L; Blood Urea Nitrogen 5 mg/dL (7-17); Calcium 8.9 mg/dL (8.4-10.2); Carbon Dioxide 24 mmol/L (22-30); Chloride 99 mmol/L (98-107); Glucose 96 mg/dL (74-99); Magnesium 1.8 mg/dL (1.6-2.3); Non-African American GFR(CKD) >90 (>60 ml/min/1.73 sqM); Potassium 4.1 mmol/L (3.5-5.1); Sodium 132 mmol/L (137-145); Total Bilirubin 0.4 mg/dL (0.2-1.3); Total Protein 7.6 g/dL (6.3-8.2)
[2021-12-04 12:15] LABS: Amphetamine Screen,Urine Not Detected (NotDetected); Barbiturate Screen,Urine Not Detected (NotDetected); Benzodiazepines Screen,Urine Not Detected (NotDetected); Cocaine Screen,Urine Not Detected (NotDetected); Methadone Screen, Urine Not Detected (NotDetected); Opiate Screen,Urine Not Detected (NotDetected); Oxycodone Screen, Urine Detected (NotDetected); Phencyclidine Screen,Urine Not Detected (NotDetected); Tricyclic Antidepressant,Urine Not Detected (NotDetected); Urn Cannabinoid Scrn Not Detected (NotDetected)
[2021-12-04 12:22] LABS: Basophils # (A) 0.1 k/uL (0-0.2); Basophils % (A) 1 %; Eosinophils # (A) 0.3 k/uL (0-0.7); Eosinophils % (A) 3 %; HCT 41.4 % (34.0-46.0); HGB 14.5 gm/dL (11.4-16.0); Lymphocytes # (A) 2.4 k/uL (1.0-4.8); Lymphocytes % (A) 24 %; MCH 33.8 pg (25.0-35.0); MCHC 35.1 g/dL (31.0-37.0); MCV 96.4 fL (80.0-100.0); Mean Platelet Volume 7.3; Monocytes # (A) 0.6 k/uL (0-1.0); Monocytes % (A) 6 %; Neutrophils # (A) 6.3 k/uL (1.3-7.7); Neutrophils % (A) 63 %; Platelet Count 269 k/uL (150-450); WBC 9.9 k/uL (3.8-10.6)
[2021-12-04] MEDS ORDERED: LORazepam 1 MG TAB PO ONE (14:35)
[2021-12-04] MEDS ORDERED: LORazepam 1 MG TAB PO STA (14:36)
== END 2021-12-04 16:11 | disposition home or self-care (01) ==
LOC: EC 10:46
DX: F10.10 Alcohol abuse, uncomplicated (principal); F41.9 Anxiety disorder, unspecified; I10 Essential (primary) hypertension; Z88.6 Allergy status to analgesic agent; Z88.1 Allergy status to other antibiotic agents; Z88.0 Allergy status to penicillin; Z88.9 Allergy status to unspecified drugs, medicaments and biological substances; Z88.8 Allergy status to other drugs, medicaments and biological substances
CPT/HCPCS: 36415; 80053; 80306; 82075; 83735; 85025; 99285